=== PATIENT | male | born 1960 | race Caucasian/White ===

== ENCOUNTER 2024-02-29 04:30 | Emergency (ER) | payer OTHER ==
[~2024-02-29] VITALS: Ht 177.8 cm; Wt 77.3 kg
[2024-02-29] MEDS: SODIUM CHLORIDE 0.9% 1,000 ML IV ONE (07:58)
[2024-02-29] MEDS: levETIRAcetam 1000 mg/100ml 100 ML IV ONE (07:58)
[2024-02-29] MEDS: LORazepam 2MG/ML-1ML VIAL IV ONE (07:58)
[2024-02-29] MEDS: LORazepam 2MG/ML-1ML VIAL IM ONE (07:59)
[2024-02-29 08:44] LABS: Urine Bacteria None Seen /hpf (None Seen)
[2024-02-29 08:57] LABS: Urine Blood 1+ /uL (Negative); Urine Clarity Clear (Clear); Urine Color Yellow (Yellow); Urine Mucus FEW (None Seen); Urine Protein, UAD TRACE (Negative); Urine Specific Gravity 1.025 (1.001-1.035); Urine Urobilinogen Normal (Negative); Urine WBC 3 /hpf (0 - 3); Urine pH 5.5 (5.0-9.0)
[2024-02-29 09:10] LABS: Amphetamine Screen, Urine Neg (NEGATIVE); Benzodiazephine Screen, Urine Neg (NEGATIVE)
[2024-02-29 09:11] LABS: Barbiturate Scree,Urine Neg (NEGATIVE); Cannabinoid Screen, Urine Neg (NEGATIVE); Cocaine Screen, Urine Neg (NEGATIVE); Opiate Scree,Urine Neg (NEGATIVE); Phencyclidine Screen, Urine Neg (NEGATIVE)
[2024-02-29 10:00] VITALS: PULSE 84; RESP 16; O2SAT 98
[2024-02-29] MEDS: risperiDONE 1 MG TAB PO ONE (15:47)
[2024-02-29] MEDS: levETIRAcetam 500 MG TAB PO ONE (15:48)
[2024-02-29 17:30] VITALS: TEMP 98.2
[2024-02-29 20:49] VITALS: BP 103/63; PULSE 98; RESP 17; O2SAT 92
== END 2024-02-29 20:59 | disposition home or self-care (01) ==
LOC: EDBD 04:30 → ER 04:30
DX: G40.909 Epilepsy, unspecified, not intractable, without status epilepticus (principal); F20.9 Schizophrenia, unspecified; Z79.899 Other long term (current) drug therapy
CPT/HCPCS: 71045; 80307; 81001; 87086; 96372; 99285; J2060

== ENCOUNTER 2024-04-02 22:55 | Inpatient (IN) | payer OTHER ==
[~2024-04-02] VITALS: Ht 177.8 cm; Wt 61.5 kg
[2024-04-03 00:04] LABS: Basophils # (auto) 0 10 ^3/uL (0-0.2); Basophils % (auto) 0.1 % (0.0-2.0); Eosinophils # (auto) 0 10 ^3/uL (0-0.8); Hematocrit 43.4 % (41.0-53.0); Hemoglobin 14.6 g/dL (13.5-17.5)
[2024-04-03 00:05] LABS: Lymphocytes # (auto) 0.9 10 ^3/uL (0.4-5.4); Lymphocytes % (auto) 8.4 % (10.0-50.0); Mean Corpuscular Hemoglobin 35.1 pg (28.0-32.0); Mean Corpuscular Hgb Conc. 33.7 g/dL (32.0-36.0); Mean Corpuscular Volume 104.2 fL (80.0-100.0); Monocytes % (auto) 8.5 % (0.0-12.0); Neutrophils # (auto) 9.4 10 ^3/uL (1.6-8.6); Platelet Count (auto) 172 10^3/uL (140-450); Red Blood Cells 4.17 10^6/uL (4.5-5.90); Red Cell Distribution Width 13.8 % (11.8-14.3); White Blood Cell 11.3 10^3/uL (4.4-10.8)
[2024-04-03 00:19] LABS: Alanine Aminotransferase 27 U/L (7-40); Albumin 4.6 g/dL (3.2-4.8); Alkaline Phosphatase 119 U/L (46-116); Anion Gap 15 (5-15); Aspartate Aminotransferase 59 U/L (13-40); BUN/Creatinine Ratio 10.4 (10.0-20.0); Bilirubin, Total 1.4 mg/dL (0.2-1.0); Blood Urea Nitrogen 25 mg/dL (9-23); Carbon Dioxide 18 mmol/L (20-31); Chloride 106 mmol/L (98-107); Glucose 110 mg/dL (74-106); Potassium 3.9 mmol/L (3.5-5.1); Sodium 139 mmol/L (136-145)
[2024-04-03 00:21] LABS: Lactic Acid w/Reflex 5.7 mmol/L (0.4-2.0)
[2024-04-03] MEDS: SODIUM CHLORIDE 0.9% 1,000 ML IV ONE ×3 (02:15→18:38)
[2024-04-03] MEDS ORDERED: VANCOMYCIN PER PHARMACY 0 MG IV SCH (05:00)
[2024-04-03] MEDS: THIAMINE 100mg/ml INJ (200mg/2ml VIAL) IV ONE (05:34)
[2024-04-03 06:03] LABS: COVID19 ANTIGEN SOFIA FIA NEGATIVE (NEGATIVE)
[2024-04-03] MEDS: VANCOMYCIN 1GM/200ML PREMIX 200 ML IV ONE (06:21)
[2024-04-03 06:25] LABS: Chloride 107 mmol/L (98-107); Potassium 3.5 mmol/L (3.5-5.1); Sodium 137 mmol/L (136-145)
[2024-04-03 06:26] LABS: Anion Gap 10 (5-15); Carbon Dioxide 20 mmol/L (20-31)
[2024-04-03 06:27] LABS: Calcium 9.1 mg/dL (8.7-10.4)
[2024-04-03 06:31] LABS: Glucose 80 mg/dL (74-106)
[2024-04-03 06:32] LABS: BUN/Creatinine Ratio 12.4 (10.0-20.0); Blood Urea Nitrogen 19 mg/dL (9-23)
[2024-04-03 06:54] LABS: Magnesium 1.8 mg/dL (1.6-2.6)
[2024-04-03 06:56] LABS: Base Excess -1.9 mmol/L (-2.0-3.0)
[2024-04-03 07:33] LABS: Urine Bacteria None Seen /hpf (None Seen)
[2024-04-03 07:35] LABS: Basophils # (auto) 0 10 ^3/uL (0-0.2); Basophils % (auto) 0.3 % (0.0-2.0); Eosinophils # (auto) 0 10 ^3/uL (0-0.8); Eosinophils % (auto) 0.4 % (0.0-7.0); Hematocrit 39.6 % (41.0-53.0); Hemoglobin 13.5 g/dL (13.5-17.5); Lymphocytes # (auto) 1.6 10 ^3/uL (0.4-5.4); Lymphocytes % (auto) 19.8 % (10.0-50.0); Mean Corpuscular Hemoglobin 35.2 pg (28.0-32.0); Mean Corpuscular Hgb Conc. 34.2 g/dL (32.0-36.0); Mean Corpuscular Volume 103.1 fL (80.0-100.0); Monocytes % (auto) 11.8 % (0.0-12.0); Neutrophils # (auto) 5.5 10 ^3/uL (1.6-8.6); Neutrophils % (auto) 67.7 % (37.0-80.0); Nucleated Red Blood Cells % 0.2 %; Platelet Count (auto) 163 10^3/uL (140-450); Red Blood Cells 3.84 10^6/uL (4.5-5.90); Red Cell Distribution Width 13.2 % (11.8-14.3); White Blood Cell 8.2 10^3/uL (4.4-10.8)
[2024-04-03 07:40] VITALS: PULSE 63; RESP 14; O2SAT 98
[2024-04-03 07:42] LABS: Blood Alcohol < 3.0 mg/dL (<10)
[2024-04-03 07:44] LABS: Bilirubin, Direct 0.5 mg/dL (<0.3); INR 1.04 (0.9-1.15); Partial Thromboplastin Time 26.2 SEC (24.5-34.5)
[2024-04-03 08:00] LABS: Urine Blood 3+ /uL (Negative); Urine Clarity Turbid (Clear); Urine Color Yellow (Yellow); Urine Hyaline Cast MANY /lpf (0 - 2); Urine Mucus FEW (None Seen); Urine Protein, UAD 1+ (Negative); Urine Specific Gravity 1.021 (1.001-1.035); Urine Urobilinogen Normal (Negative); Urine WBC 4 /hpf (0 - 3)
[2024-04-03 08:11] LABS: Amphetamine Screen, Urine Neg (NEGATIVE)
[2024-04-03 08:12] LABS: Benzodiazephine Screen, Urine Neg (NEGATIVE)
[2024-04-03 08:13] LABS: Barbiturate Scree,Urine Neg (NEGATIVE); Cannabinoid Screen, Urine Neg (NEGATIVE); Cocaine Screen, Urine Neg (NEGATIVE); Opiate Scree,Urine Neg (NEGATIVE); Phencyclidine Screen, Urine Neg (NEGATIVE)
[2024-04-03 08:18] LABS: Creatinine, Urine 242.31 mg/dL (30.0-125.0)
[2024-04-03] MEDS: POTASSIUM EFFERVESENT TAB 25 MEQ PO SCH (08:23)
[2024-04-03] MEDS: ERGOCALCIFEROL 50,000 UNIT(1.25MG) CAP PO SCH (08:24)
[2024-04-03] MEDS: MAGNESIUM OXIDE 400 MG TAB PO ONE (08:24)
[2024-04-03] MEDS: CYANOCOBALAMIN (B-12) 1000 MCG/1 ML VIAL IM ONE (08:24)
[2024-04-03 08:36] LABS: Erythrocyte Sedimentation Rate 9 mm/hr (0-20)
[2024-04-03] MEDS: MEROPENEM 1GM IVPB 50 ML IV SCH (09:32)
[2024-04-03 12:02] VITALS: BP 112/58; PULSE 88; RESP 20; TEMP 98.8; O2SAT 96
[2024-04-03 12:30] VITALS: BP 102/67; PULSE 58; RESP 20; TEMP 97.3; O2SAT 99
[2024-04-03 17:00] VITALS: BP 93/48; PULSE 46; RESP 18; TEMP 97.8; O2SAT 100
[2024-04-03] MEDS: SODIUM CHLORIDE 0.9% 500 ML IV ONE (18:34)
[2024-04-03] MEDS ORDERED: levETIRAcetam 500 mg/100ml 100 ML IV SCH (18:37)
[2024-04-03] MEDS: FOLIC ACID 1 MG in D5W 5% 50 ML INJ ONE (18:38)
[2024-04-03 20:00] VITALS: PULSE 71; PULSE 72; RESP 16; O2SAT 96
[2024-04-03] MEDS: SODIUM CHLORIDE 0.9% 1,000 ML IV SCH (20:03)
[2024-04-03] MEDS: levETIRAcetam 500 mg/100ml 100 ML IV SCH (20:41)
[2024-04-03 21:00] VITALS: BP 100/57; PULSE 73; RESP 17; TEMP 97.7; O2SAT 98
[2024-04-04] VITALS (8 sets, daily range): BP systolic 82–106; BP diastolic 45–59; PULSE 53–66; RESP 16–18; TEMP 97.5–98.2; O2SAT 95–100
[2024-04-04] MEDS ORDERED: VANCOMYCIN 1GM/250ML 250 ML IV SCH (05:00)
[2024-04-04] MEDS: cefTRIAXone 1GM/50ML D5W 50 ML IV SCH (07:46)
[2024-04-04] MEDS: SODIUM CHLORIDE 0.9% 1,000 ML IV ONE (10:37)
[2024-04-04 10:41] LABS: Basophils # (auto) 0 10 ^3/uL (0-0.2); Hemoglobin 11.7 g/dL (13.5-17.5); Lymphocytes # (auto) 1.2 10 ^3/uL (0.4-5.4); Monocytes # (auto) 0.6 10 ^3/uL (0-1.3); White Blood Cell 5.8 10^3/uL (4.4-10.8)
[2024-04-04 10:43] LABS: Basophils % (auto) 0.4 % (0.0-2.0); Eosinophils # (auto) 0.1 10 ^3/uL (0-0.8); Eosinophils % (auto) 2.5 % (0.0-7.0); Hematocrit 33.9 % (41.0-53.0); Lymphocytes % (auto) 21.5 % (10.0-50.0); Mean Corpuscular Hemoglobin 35.4 pg (28.0-32.0); Mean Corpuscular Hgb Conc. 34.5 g/dL (32.0-36.0); Mean Corpuscular Volume 102.8 fL (80.0-100.0); Monocytes % (auto) 10.7 % (0.0-12.0); Neutrophils # (auto) 3.8 10 ^3/uL (1.6-8.6); Neutrophils % (auto) 64.9 % (37.0-80.0); Platelet Count (auto) 143 10^3/uL (140-450); Red Blood Cells 3.29 10^6/uL (4.5-5.90); Red Cell Distribution Width 13.2 % (11.8-14.3)
[2024-04-04 11:00] LABS: Alanine Aminotransferase 30 U/L (7-40); Alkaline Phosphatase 88 U/L (46-116); Anion Gap 4 (5-15); Aspartate Aminotransferase 82 U/L (13-40); BUN/Creatinine Ratio 15.9 (10.0-20.0); Blood Urea Nitrogen 14 mg/dL (9-23); Calcium 8.6 mg/dL (8.7-10.4); Carbon Dioxide 25 mmol/L (20-31); Chloride 111 mmol/L (98-107); Glucose 74 mg/dL (74-106); Potassium 3.6 mmol/L (3.5-5.1); Sodium 140 mmol/L (136-145)
[2024-04-04 11:01] LABS: Albumin 3.3 g/dL (3.2-4.8); Bilirubin, Total 0.5 mg/dL (0.2-1.0); Total Protein 5.1 g/dL (5.7-8.2)
[2024-04-04 11:12] LABS: Creatine Kinase IFCC 1476 U/L (46-171)
[2024-04-04] MEDS: SODIUM CHLORIDE 0.9% 1,000 ML IV SCH (18:37)
[2024-04-05] VITALS (8 sets, daily range): BP systolic 92–116; BP diastolic 49–68; PULSE 54–91; RESP 15–21; TEMP 97.4–98.5; O2SAT 94–99
[2024-04-05] MEDS: ENOXAPARIN SOD 40 MG/0.4 ML SYRINGE SC SCH (09:49)
[2024-04-05 10:55] LABS: Basophils # (auto) 0 10 ^3/uL (0-0.2); Eosinophils # (auto) 0.2 10 ^3/uL (0-0.8); Hemoglobin 12.9 g/dL (13.5-17.5); Lymphocytes # (auto) 1.4 10 ^3/uL (0.4-5.4); Mean Corpuscular Hgb Conc. 34.4 g/dL (32.0-36.0); Nucleated Red Blood Cells % 0.1 %; Red Blood Cells 3.65 10^6/uL (4.5-5.90)
[2024-04-05 10:58] LABS: Basophils % (auto) 0.3 % (0.0-2.0); Eosinophils % (auto) 2.5 % (0.0-7.0); Hematocrit 37.5 % (41.0-53.0); Mean Corpuscular Hemoglobin 35.3 pg (28.0-32.0); Mean Corpuscular Volume 102.7 fL (80.0-100.0); Monocytes # (auto) 0.6 10 ^3/uL (0-1.3); Monocytes % (auto) 8.5 % (0.0-12.0); Neutrophils # (auto) 5.4 10 ^3/uL (1.6-8.6); Neutrophils % (auto) 70.7 % (37.0-80.0); Platelet Count (auto) 155 10^3/uL (140-450); White Blood Cell 7.6 10^3/uL (4.4-10.8)
[2024-04-05 11:17] LABS: Anion Gap 5 (5-15); Carbon Dioxide 26 mmol/L (20-31); Chloride 109 mmol/L (98-107); Potassium 4.7 mmol/L (3.5-5.1); Sodium 140 mmol/L (136-145)
[2024-04-05 11:18] LABS: Calcium 9.1 mg/dL (8.7-10.4)
[2024-04-05 11:23] LABS: BUN/Creatinine Ratio 10.2 (10.0-20.0); Blood Urea Nitrogen 9 mg/dL (9-23); Glucose 81 mg/dL (74-106)
[2024-04-05 11:24] LABS: Creatine Kinase IFCC 921 U/L (46-171)
[2024-04-05] MEDS: THIAMINE 100mg/ml INJ (200mg/2ml VIAL) IV SCH (12:44)
[2024-04-05] MEDS: FOLIC ACID 1 MG in D5W 5% 50 ML INJ SCH (16:54)
[2024-04-05] MEDS: QUEtiapine FUMARATE 25 MG TAB PO SCH (18:21)
[2024-04-05] MEDS: risperiDONE 1 MG TAB PO ONE (18:21)
[2024-04-06] VITALS (8 sets, daily range): BP systolic 95–130; BP diastolic 48–66; PULSE 52–86; RESP 13–18; TEMP 97.5–98.2; O2SAT 95–100
[2024-04-06] MEDS: risperiDONE 1 MG TAB PO SCH (09:43)
[2024-04-06 16:12] LABS: Basophils # (auto) 0 10 ^3/uL (0-0.2); Basophils % (auto) 0.5 % (0.0-2.0); Eosinophils # (auto) 0.2 10 ^3/uL (0-0.8); Eosinophils % (auto) 5.2 % (0.0-7.0); Hematocrit 36.3 % (41.0-53.0); Hemoglobin 12.2 g/dL (13.5-17.5); Lymphocytes # (auto) 1.7 10 ^3/uL (0.4-5.4); Lymphocytes % (auto) 37.9 % (10.0-50.0); Mean Corpuscular Hemoglobin 34.8 pg (28.0-32.0); Mean Corpuscular Hgb Conc. 33.5 g/dL (32.0-36.0); Mean Corpuscular Volume 103.9 fL (80.0-100.0); Monocytes # (auto) 0.5 10 ^3/uL (0-1.3); Monocytes % (auto) 10.9 % (0.0-12.0); Neutrophils # (auto) 2.1 10 ^3/uL (1.6-8.6); Neutrophils % (auto) 45.5 % (37.0-80.0); Nucleated Red Blood Cells % 0.1 %; Platelet Count (auto) 152 10^3/uL (140-450); Red Cell Distribution Width 13.7 % (11.8-14.3); White Blood Cell 4.6 10^3/uL (4.4-10.8)
[2024-04-06 16:22] LABS: Chloride 112 mmol/L (98-107); Potassium 4.3 mmol/L (3.5-5.1); Sodium 141 mmol/L (136-145)
[2024-04-06 16:23] LABS: Anion Gap 5 (5-15); Carbon Dioxide 24 mmol/L (20-31)
[2024-04-06 16:24] LABS: Calcium 9.2 mg/dL (8.7-10.4)
[2024-04-06 16:28] LABS: BUN/Creatinine Ratio 8.8 (10.0-20.0); Blood Urea Nitrogen 7 mg/dL (9-23); Glucose 101 mg/dL (74-106)
[2024-04-07] VITALS (7 sets, daily range): BP systolic 89–105; BP diastolic 47–59; PULSE 56–75; RESP 18; TEMP 97.4–98.1; O2SAT 94–98
[2024-04-07] MEDS: SODIUM CHLORIDE 0.9% 500 ML IV ONE (08:45)
== END 2024-04-07 19:56 | disposition home or self-care (01) | DRG 422 ==
LOC: EDBD 22:55 → ER 22:55 → TELE 04-03 04:55 → TELE-WESTW 04-03 11:20 → TELE-CENTR 04-03 11:45
PROVIDERS: ADMIT Nurse Practitioner Family; ATTEND Student in an Organized Health Care Education/Training Program
DX: E86.0 Dehydration (principal); N17.0 Acute kidney failure with tubular necrosis; G92.8 Other toxic encephalopathy; E87.20 Acidosis, unspecified; D53.1 Other megaloblastic anemias, not elsewhere classified; T83.098A Other mechanical complication of other urinary catheter, initial encounter; Y83.8 Other surgical procedures as the cause of abnormal reaction of the patient, or of later complication, without mention of misadventure at the time of the procedure; F20.9 Schizophrenia, unspecified; G40.909 Epilepsy, unspecified, not intractable, without status epilepticus; F17.210 Nicotine dependence, cigarettes, uncomplicated; D75.89 Other specified diseases of blood and blood-forming organs; Z20.822 Contact with and (suspected) exposure to COVID-19; R74.01 Elevation of levels of liver transaminase levels; R31.0 Gross hematuria; G62.9 Polyneuropathy, unspecified
CPT/HCPCS: 36415; 36600; 70450; 71045; 76700; 80048; 80053; 80307; 80320; 81001; 82140; 82248; 82306; 82550; 82570; 82607; 82746; 82805; 82962; 83036; 83605; 83735; 83880; 84100; 84300; 84443; 84484; 85025; 85610; 85652; 85730; 87040; 87081; 87086; 87426; 93005; 93306; 93886; 97163; G0378; J2185; J7060

== ENCOUNTER 2024-07-14 16:49 | Inpatient (IN) | payer MEDICAID, OTHER ==
[~2024-07-14] VITALS: Ht 177.8 cm; Wt 59.3 kg
[2024-07-14] MEDS: HYDROcodone-ACET 5/325MG TAB PO ONE (17:30)
[2024-07-14] MEDS: KETOROLAC TROMETH 60MG/2ML VIAL IM ONE (17:30)
--- NOTE | 2024-07-14 18:08 | DVH ---
EXAM: XY L FOREARM XRAY CLINICAL HISTORY: Trauma COMPARISON: None TECHNIQUE: XY L FOREARM XRAY Findings/Impression: 2 views of the left forearm. Mildly displaced comminuted fractures of the distal radius and ulna. There is no evidence of dislocation, blastic, or lytic lesions. No radiopaque foreign bodies.
--- NOTE | 2024-07-14 18:10 | DVH ---
EXAM: XY L WRIST 3+ VIEW XRAY CLINICAL HISTORY: Trauma COMPARISON: None TECHNIQUE: XY L WRIST 3+ VIEW XRAY Findings/Impression: 3 views of robert left wrist. Mildly displaced, comminuted fractures of the distal radius and ulna. Mild to moderate soft tissue ed mary. There is no evidence of dislocation, blastic, or lytic lesions. No radiopaque foreign bodies.
--- NOTE | 2024-07-14 20:58 | ED.PDOC ---
Musculoskeletal HPI Comments This patient is a 63-year-old male who lives in an assisted living facility due to altered mental status as concerns that may be related to a traumatic brain injury arrives to the ED today via EMS for complaints of left arm and wrist pain. Patient apparently wandered off from his facility and was found by facility members. They stated once he was found they noticed his left wrist and forearm were deformed and painful. They are unaware of what occurred. Patient can not specify what occurred as well. No blood loss. No signs of head trauma. Vital signs were stable on arrival. Chief Complaint: Upper Extremity Time Seen by MD: 17:14 Reviewed Notes: Nurses Notes, Head Animal Trainer Notes Information Source: Patient, Emergency Med Personnel Mode of Arrival: EMS Location: Left Extremity Location: Arm, Wrist Timing: Hours Prehospital treatment: None Severity: Moderate Able to Move Extremity: No Bear Weight: Fully Pain: Moderate Hand Dominance: Right Mechanism: Compression Circumstances: Unknown Onset of Symptoms: After Trauma Symptoms: Swelling, Pain DVT Risk Factors: NONE Past Medical History PAST MEDICAL HISTORY: Denies Past Medical History (Other): Patient has some level of altered mental status history that may be related to a traumatic brain injury. Surgical History: Unobtainable Family History Family History: Reviewed,noncontributory to illness, No family hx of Cancer, No family hx of DM, No family hx of Heart lesa, No family hx of HTN, No family hx ofKidney lesa, No family hx of Liver lesa, No family hx of Lung lesa, No family hx of Stroke Social History Smoker: Non-Smoker Alcohol: Denies ETOH Use Drugs: Denies Drug Use Lives In: Home Constitutional: denies: chills, diaphoresis, fatigue, fever, malaise, sweats, weakness, others EENTM: denies: blurred vision, double vision, ear bleeding, ear discharge, ear drainage, ear pain, ear ringing, eye pain, eye redness, hearing loss, mouth pain, mouth swelling, nasal discharge, nose bleeding, nose congestion, nose pain, photophobia, tearing, throat pain, throat swelling, voice changes, others Respiratory: denies: cough, hemoptysis, orthopnea, SOB at rest, shortness of breath, SOB with excertion, stridor, wheezing, others Cardiovascular: denies: chest pain, dizzy spells, diaphoresis, Dyspnea on exertion, edema, irregular heart beat, left arm pain, lightheadedness, palpitations, PND, syncope, others Gastrointestinal: denies: abdomen distended, abdominal pain, blood streaked bowels, constipated, diarrhea, dysphagia, difficulty swallowing, hematemesis, melena, nausea, poor appetite, poor fluid intake, rectal bleeding, rectal pain, vomiting, others Genitourinary: denies: burning, dysuria, flank pain, frequency, hematuria, incontinence, penile discharge, penile sore, pain, testicle pain, testicle swelling, urgency, others Neurological: denies: dizziness, fainting, headache, left sided numbness, left sided weakness, numbness, paresthesia, pre-existing deficit, right sided numbness, right sided weakness, seizure, speech problems, tingling, tremors, weakness, others Musculoskeletal: reports: others (Left forearm and left wrist pain); denies: back pain, gout, joint pain, joint swelling, muscle pain, muscle stiffness, neck pain Integumetry: denies: bruises, change in color, change in hair/nails, dryness, laceration, lesions, lumps, rash, wounds, others Allergic/Immunocompromised: denies: Difficulty Healing, Frequent Infections, Hives, Itching, others Hematologic/Lymphatic: denies: anemia, blood clots, easy bleeding, easy bruising, swollen glands, others Endocrine: denies: excessive hunger, excessive sweating, excessive thirst, excessive urination, flushing, intolerance to cold, intolerance to heat, unexplained weight gain, unexplained weight loss, others Psychiatric: denies: anxiety, bipolar disorder, depression, hopeless, panic disorder, schizophrenia, sleepless, suicidal, others Unable to Obtain due to: Altered Mental Status, Dementia Physical Exam General Appearance: Moderate Distress (Patient appears to be in moderate distress due to arm and wrist pain concerns), Normal HEENT: Normal ENT Inspection, Pharynx Normal, TMs Normal Neck: Full Range of Motion, Non-Tender, Normal, Normal Inspection Respiratory: Chest Non-Tender, Lungs Clear, No Accessory Muscle Use, No Respiratory Distress, Normal Breath Sounds Cardiovascular: No Edema, No JVD, No Murmur, No Gallop, Normal Peripheral Pulses, Regular Rate/Rhythm Breast Exam: Deferred Gastrointestinal: No Pulsatile Mass, Normal Bowel Sounds, Soft Genitalia: Deferred Pelvic: Deferred Rectal: Deferred Extremities: Other (Diffuse left distal forearm tenderness to palpation extending into the wrist. Localized edema without ecchymosis. Significant reduced range of motion. No definitive boutonniere deformity.) Neurologic: Alert Cerebellar Function: NOT DONE Reflexes: NOT DONE Skin: Dry, Normal Color, Warm Lymphatic: No Adenopathy Was a procedure done? Was a procedure done?: No Differential Diagnosis EXT Differential Diagnosis: Other (Wrist fracture, wrist sprain, facial fracture, ulnar fracture, forearm contusion) X-Ray, Labs, Meds, VS Vital Signs Date Time Temp Pulse Resp B/P (MAP) Pulse Ox O2 Delivery O2 Flow Rate FiO2 07/14/24 18:19 98.6 107 16 105/68 (80) 96 07/14/24 17:01 100 X-Ray, Labs, Meds, VS Comment All studies performed the ED were evaluated by me personally. Imaging studies confirmed a distal radius and ulnar fracture that is comminuted but nondisplaced. Patient was put in a sugar-tong splint and sling and has been adv ised to follow up with ortho. While at the facility, [facility]'s department called and notified us that the patient is not to come back to his facility as he has been combative. Patient will be admitted for evaluation of his multiple fractures as well as case management social worker consult for long-term placement. Time of 1ST Reevaluation: 20:56 Reevaluation 1ST: Improved Consultation: PCP, Other (Orthopedist) Patient Education/Counseling: Diagnosis, Treatment Family Education/Counseling: Diagnosis, Treatment Departure 1 Departure Time of Disposition: 20:56 Impression: Primary Impression: Fracture of distal end of left radius and ulna Disposition: ADMITTED INPATIENT Condition: Fair Discharged With: Self Critical Care Note Critical Care Time?: No Stability Stability form required: No Heart Score Heart Score: Heart Score Response (Comments) Value History N/A 0 EKG N/A 0 Age N/A 0 Risk Factors N/A 0 Troponin N/A 0 Total 0 MARIA LUZ MAKI PAC Jul 14, 2024 20:58
[2024-07-14] MEDS ORDERED: DOCUSATE SOD 100 MG CAP PO PRN (23:00)
[2024-07-14] MEDS: SODIUM CHLORIDE 0.9% 1,000 ML IV SCH (23:00)
[2024-07-14] MEDS ORDERED: ACETAMINOPHEN 325 MG TAB PO PRN (23:00)
[2024-07-14] MEDS ORDERED: ONDANSETRON HCL 4 MG/2 ML VIAL IV PRN (23:00)
--- NOTE | 2024-07-14 23:09 | DVHHP2 ---
History of Present Illness Reason for Visit: Fracture of distal end of left radius and ulna History of Present Illness The patient is a 63-year-old male with past medical history of traumatic brain injury presented to [facility] ED with complaint of left arm and wrist pain. Patient apparently wandered off from his facility and was found by facility members, noticed his left wrist and forearm were deformed and painful. Patient was seen and evaluated in the ED, laboratory data shows WBC 8.2, platelets 216. Left wrist x-ray revealing mildly displaced comminuted fracture of the distal radius and ulna, mild to moderate soft tissue edema. Please see medication orders section in the computer. On my assessment, patient no signs of head trauma, no dizziness, no diaphoresis, no nausea, no vomiting, no fever, no chills. Patient was admitted for further evaluation and medical management. Past Medical History Denies past medical history, Traumatic brain injury. Past Surgical History Denies all surgeries Family History Reviewed, noncontributory to the management of this case. Past Social History The patient lives at home, denies smoking, alcohol or illicit drugs abuse. Review of Systems Constitutional: Yes: Weakness; No: Fever, Chills, Sweats, Malaise, Other Eyes: No: Pain, Vision change, Conjunctivae inflammation, Eyelid inflammation, Other, Redness ENT: No: Ear pain, Ear discharge, Nose pain, Nose discharge, Nose congestion, Mouth pain, Mouth swelling, Throat pain, Throat swelling, Other Respiratory: No: Cough, Dry, Shortness of breath, SOB with excertion, Wheezing, Hemoptysis, Pleuritic Pain, Sputum, Wheezing, Other Cardiovascular: No: Chest Pain, Palpitations, Orthopnea, Paroxysmal Noc. Dyspnea, Edema, Lt Headedness, Other Gastrointestinal: No: Nausea, Vomiting, Abdominal Pain, Diarrhea, Constipation, Melena, Hematochezia, Other Genitourinary: No Dysuria, No Frequency, No Incontinence, No Hematuria, No Retention, No Other Musculoskeletal: other (Left forearm and left wrist pain.); No: neck pain, shoulder pain, arm pain, back pain, hand pain, leg pain, foot pain Skin: No: Rash, Lesions, Jaundice, Bruising, Other Neurological: No: Weakness, Numbness, Incoordination, Change in speech, Confusion, Seizures, Other Medications Current Medications Medications Dose Ordered Sig/Cece Route Start Time Stop Time Status Last Admin Dose Admin Sodium Chloride 1,000 ml @ 60 mls/hr [id number] IV 07/14/24 23:00 UNV Acetaminophen/ Hydrocodone Bitart 1 tab Q4HP PRN PO 07/14/24 23:00 UNV Ondansetron HCl 4 mg Q4HP PRN IV 07/14/24 23:00 UNV Docusate Sodium 100 mg BIDPRN PRN PO 07/14/24 23:00 UNV Enoxaparin Sodium 40 mg DAILY SC 07/15/24 10:00 UNV Acetaminophen 650 mg Q6HP PRN PO 07/14/24 23:00 UNV Morphine Sulfate 2 mg Q4HPRN PRN IV 07/14/24 23:00 UNV Exam Vital Signs Vital Signs Date Time Temp Pulse Resp B/P (MAP) Pulse Ox O2 Delivery O2 Flow Rate FiO2 07/14/24 18:19 98.6 107 16 105/68 (80) 96 General Appearance: Alert, Oriented X3, Cooperative, No acute distress HEENT: Atraumatic, PERRLA, EOMI, Mucous membr. moist/pink Respiratory: Clear to auscultation, Normal air movement Cardiovascular: Regular rate, Normal S1, Normal S2, No murmurs Abdominal: Normal bowel sounds, Soft, No tenderness, No hepatospenomegaly, No masses Extremities: No clubbing, No cyanosis, No edema, Normal pulses, No tenderness/swelling Skin: No rashes, No breakdown, No significant lesion Neuro: Normal speech, Normal tone, Sensation intact, Cranial nerves 3-12 NL, Reflexes 2+, Other (Generalized weakness) Psych/Mental Status: Mental status NL, Mood NL Labs/Xrays PATIENT: LELAND TRAN ACCT: [id number] UNIT: [id number] : 1960 LOC: ER ROOM / BED: / AGE / SEX: 63 / M ADM STATUS: REG ER SERVICE [id number] ORDERING PHYSICIAN: MARIA LUZ MAKI PAC PROCEDURE(s): LFOR - L FOREARM XRAY REASON: Trauma ORDER NUMBER(s): [id number], ACCESSION NUMBER(s): [id number] EXAM: XY L FOREARM XRAY CLINICAL HISTORY: Trauma COMPARISON: None TECHNIQUE: XY L FOREARM XRAY Findings/Impression: 2 views of the left forearm. Mildly displaced comminuted fractures of the distal radius and ulna. There is no evidence of dislocation, blastic, or lytic lesions. No radiopaque foreign bodies. ORDERING PHYSICIAN: MARIA LUZ MAKI PAC PROCEDURE(s): LWRI - L WRIST 3+ VIEW XRAY REASON: Trauma ORDER NUMBER(s): [id number], ACCESSION NUMBER(s): [id number] EXAM: XY L WRIST 3+ VIEW XRAY CLINICAL HISTORY: Trauma COMPARISON: None TECHNIQUE: XY L WRIST 3+ VIEW XRAY Findings/Impression: 3 views of robert left wrist. Mildly displaced, comminuted fractures of the distal radius and ulna. Mild to moderate soft tissue edema. There is no evidence of dislocation, blastic, or lytic lesions. No radiopaque foreign bodies. Assessment/Plan Assessment/Plan Fracture of distal end of left radius and ulna Generalized weakness Plan 1. Admit to Med-Surg unit 2. Breathing treatment 3. Pain control management 4. Management of fluids and electrolytes 5. Consultation for orthopedic 6. Diagnostic tests left wrist x-ray 7. DVT prophylaxis-on Lovenox 8. Repeat labs CBC, CMP in a.m. 9. Continue with current medical management 10. Treatment plan discussed with patient and RN. Patient verbalized understanding. Plan discussed with: Patient, Other (RN) My Orders Orders - LARA SOLIMAN DNP Procedure Category Date Status Time Complete Blood Count LAB 07/14/24 Logged 22:59 Comprehensive LAB 07/14/24 Logged Metabolic Panel 22:59 Allergies RAFA 07/14/24 In Process 22:59 Code Status CODE 07/14/24 Transmitted 22:59 Sodium Chloride 0.9% PHA 07/14/24 Logged 23:00 Oxygen Per Hour RT 07/14/24 Transmitted 22:59 Hydrocodone-Acet PHA 07/14/24 Logged 5/325mg Tab (Elma 23:00 Ondansetron Hcl PHA 07/14/24 Logged (Zofran) 23:00 Docusate Sodium PHA 07/14/24 Logged Capsule (Colace 23:00 Enoxaparin Sodium PHA 07/15/24 Logged (Lovenox) 10:00 Complete Blood Count LAB 07/15/24 Verified 04:00 Comprehensive LAB 07/15/24 Verified Metabolic Panel 04:00 Cardiac DIET 07/15/24 Transmitted Diet-2gna,Lofat,Lochol Breakfast Condition: Serious RAFA 07/14/24 In Process 22:59 Acetaminophen Tablet PHA 07/14/24 Logged (Tylenol Tablet) 23:00 Bedrest With Bathroom RAFA 07/14/24 In Process Privileg 22:59 Morphine Sulfate PHA 07/14/24 Logged Injection 23:00 Sequential RAFA 07/14/24 In Process Compression Device * Orthopedic Consult CONS 07/14/24 Transmitted 23:04 Problem List: (1) Fracture of distal end of left radius and ulna (2) Generalized weakness Date of Service: Jul 14, 2024 Billing Provider: LARA SOLIMAN DNP Common Visit Codes: [id number] INP/OBS CARE (HIGH) LARA SOLIMAN DNP Jul 14, 2024 23:09
[2024-07-14] MEDS ORDERED: MORPHINE SULFATE INJ 2 MG/ml SYRG IV PRN (23:15)
[2024-07-14] MEDS ORDERED: NITROGLYCERIN 0.4 MG SL TAB SL PRN (23:15)
[2024-07-14 23:23] LABS: Basophils # (auto) 0 10 ^3/uL (0-0.2); Basophils % (auto) 0.2 % (0.0-2.0); Eosinophils # (auto) 0.1 10 ^3/uL (0-0.8); Hematocrit 39.9 % (41.0-53.0); Hemoglobin 13.5 g/dL (13.5-17.5); Lymphocytes # (auto) 0.8 10 ^3/uL (0.4-5.4); Lymphocytes % (auto) 10.2 % (10.0-50.0); Mean Corpuscular Hemoglobin 33.7 pg (28.0-32.0); Mean Corpuscular Hgb Conc. 33.8 g/dL (32.0-36.0); Mean Corpuscular Volume 99.5 fL (80.0-100.0); Monocytes # (auto) 0.7 10 ^3/uL (0-1.3); Monocytes % (auto) 8.6 % (0.0-12.0); Neutrophils # (auto) 6.6 10 ^3/uL (1.6-8.6); Nucleated Red Blood Cells % 0.1 %; Platelet Count (auto) 216 10^3/uL (140-450); Red Blood Cells 4.01 10^6/uL (4.5-5.90); Red Cell Distribution Width 13.6 % (11.8-14.3); White Blood Cell 8.2 10^3/uL (4.4-10.8)
[2024-07-14 23:32] VITALS: PULSE 106; RESP 17; O2SAT 97
[2024-07-14 23:48] LABS: Alanine Aminotransferase 16 U/L (7-40); Albumin 4.1 g/dL (3.2-4.8); Anion Gap 7 (5-15); Aspartate Aminotransferase 19 U/L (13-40); Bilirubin, Total 0.3 mg/dL (0.2-1.0); Blood Urea Nitrogen 18 mg/dL (9-23); Calcium 10.1 mg/dL (8.7-10.4); Carbon Dioxide 24 mmol/L (20-31); Sodium 140 mmol/L (136-145); Total Protein 6.6 g/dL (5.7-8.2)
[2024-07-14 23:57] LABS: Alkaline Phosphatase 148 U/L (46-116); Chloride 109 mmol/L (98-107); Glucose 119 mg/dL (74-106); Potassium 3.4 mmol/L (3.5-5.1)
[2024-07-15] MEDS: MORPHINE SULFATE INJ 2 MG/ml SYRG IV PRN (03:26)
[2024-07-15 06:00] VITALS: PULSE 87; RESP 17; O2SAT 97
[2024-07-15 09:37] VITALS: O2SAT 97
[2024-07-15] MEDS: ENOXAPARIN SOD 40 MG/0.4 ML SYRINGE SC SCH (10:01)
[2024-07-15 10:14] LABS: Basophils # (auto) 0 10 ^3/uL (0-0.2); Basophils % (auto) 0.4 % (0.0-2.0); Eosinophils # (auto) 0.1 10 ^3/uL (0-0.8); Eosinophils % (auto) 1.2 % (0.0-7.0); Hematocrit 36.2 % (41.0-53.0); Hemoglobin 12.5 g/dL (13.5-17.5); Lymphocytes # (auto) 0.9 10 ^3/uL (0.4-5.4); Lymphocytes % (auto) 10.9 % (10.0-50.0); Mean Corpuscular Hemoglobin 33.6 pg (28.0-32.0); Mean Corpuscular Hgb Conc. 34.5 g/dL (32.0-36.0); Mean Corpuscular Volume 97.4 fL (80.0-100.0); Monocytes # (auto) 0.9 10 ^3/uL (0-1.3); Monocytes % (auto) 10.7 % (0.0-12.0); Neutrophils # (auto) 6.6 10 ^3/uL (1.6-8.6); Neutrophils % (auto) 76.8 % (37.0-80.0); Platelet Count (auto) 254 10^3/uL (140-450); Red Blood Cells 3.72 10^6/uL (4.5-5.90); Red Cell Distribution Width 13.6 % (11.8-14.3); White Blood Cell 8.6 10^3/uL (4.4-10.8)
[2024-07-15 10:25] LABS: Alanine Aminotransferase 15 U/L (7-40); Albumin 4.1 g/dL (3.2-4.8); Alkaline Phosphatase 146 U/L (46-116); Anion Gap 10 (5-15); Aspartate Aminotransferase 17 U/L (13-40); BUN/Creatinine Ratio 18.6 (10.0-20.0); Blood Urea Nitrogen 16 mg/dL (9-23); Calcium 9.9 mg/dL (8.7-10.4); Carbon Dioxide 22 mmol/L (20-31); Chloride 109 mmol/L (98-107); Glucose 98 mg/dL (74-106); Potassium 3.2 mmol/L (3.5-5.1); Sodium 141 mmol/L (136-145)
[2024-07-15 10:26] LABS: Bilirubin, Total 0.4 mg/dL (0.2-1.0); Total Protein 6.3 g/dL (5.7-8.2)
[2024-07-15 10:35] LABS: INR 0.97 (0.9-1.15); Partial Thromboplastin Time 26.9 SEC (24.5-34.5); Prothrombin Time 10.3 sec (9.3-11.8)
[2024-07-15] MEDS: POTASSIUM EFFERVESENT TAB 25 MEQ PO ONE (10:39)
--- NOTE | 2024-07-15 11:12 | DVHPNRES ---
Progress Note Date Seen: Jul 15, 2024 Resident Creating Document: RAIMUNDO CURRY RESIDENT Medical Necessity Reason Pt with a Central, PICC or Fol: No Subjective Review of Systems This is a 63-year-old male with past medical history of traumatic brain injury presented to the with a complaint of left arm pain left arm and wrist pain. Patient apparently wandered off from his facility and was found by facility members, noticed his left wrist and forearm were deformed and painful that prompted this visit. Xray of the left wrist revealed mildly displaced comminuted fracture of the distal radius and ulna with [id number] soft tissue edema.In the ED they put sugar-tong splint in the forearm and wrist for immobilization and sling. Constitutional: No: Fever, Chills, Sweats, Weakness, Malaise, Other Eyes: No: Pain, Vision change, Conjunctivae inflammation, Eyelid inflammation, Other, Redness ENT: No: Ear pain, Ear discharge, Nose pain, Nose discharge, Nose congestion, Mouth pain, Mouth swelling, Throat pain, Throat swelling, Other Respiratory: Shortness of breath, improving No: Cough, Dry,Wheezing, Hemoptysis, Pleuritic Pain, Sputum, Wheezing, Other Cardiovascular: No: Chest Pain, Palpitations, Orthopnea, Paroxysmal Noc. Dyspnea, Edema, Lt Headedness, Other Gastrointestinal: No: Nausea, Vomiting, Abdominal Pain, Diarrhea, Constipation, Melena, Hematochezia, Other Musculoskeletal: Pain in the lt arm ,No: other, neck pain, shoulder pain, arm pain, back pain, hand pain, leg pain, foot pain Neurological:; No: Weakness, Numbness, Incoordination, Change in speech, Confusion, Seizures Objective vital signs Vital Sign Date Time Temp Pulse Resp B/P (MAP) Pulse Ox O2 Delivery O2 Flow Rate FiO2 07/15/24 10:02 97 16 120/63 07/15/24 09:43 98.0 100 98.0 07/15/24 09:37 Room Air* 0 21 medications Current Medications Medications Dose Ordered Sig/Cece Route Start Time Stop Time Status Last Admin Dose Admin Sodium Chloride 1,000 ml @ 60 mls/hr [id number] IV 07/14/24 23:00 07/14/24 23:00 60 MLS/HR Acetaminophen/ Hydrocodone Bitart 1 tab Q4HP PRN PO 07/14/24 23:00 Ondansetron HCl 4 mg Q4HP PRN IV 07/14/24 23:00 Docusate Sodium 100 mg BIDPRN PRN PO 07/14/24 23:00 Enoxaparin Sodium 40 mg DAILY SC 07/15/24 10:00 07/15/24 10:01 40 MG Acetaminophen 650 mg Q6HP PRN PO 07/14/24 23:00 Morphine Sulfate 2 mg Q4HPRN PRN IV 07/14/24 23:00 07/15/24 10:02 2 MG Nitroglycerin 0.4 mg Q5MINP PRN SL 07/14/24 23:15 Morphine Sulfate 2 mg Q30M PRN IV 07/14/24 23:15 Examination Physical examination: General Appearance: Alert, Oriented X3, Cooperative, No acute distress HEENT: Atraumatic, PERRLA, EOMI, Mucous membrane moist/pink Respiratory: Clear to auscultation, Normal air movement Cardiovascular: Regular rate, Normal S1, Normal S2, No murmurs, no chest wall tenderness Abdominal: Normal bowel sounds, Soft, No tenderness, No hepatospenomegaly, No masses Extremities: Lt arm splint, No clubbing, No cyanosis, No edema, Normal pulses, No tenderness/swelling Skin: Multiple dried bruises in the Rt arm and bilateral legs, No rashes, No breakdown, No significant lesion Neuro: Normal gait, Normal speech, Strength at 5/5 X4 ext, Normal tone, Sensation intact, Cranial nerves 3-12 NL, Reflexes 2+ Psych/Mental Status: Mental status NL, Mood NL laboratory and microbiology Laboratory Tests 07/15/24 09:55 Test 07/15/24 09:55 Range/Units Serum Glucose 98 74-106 mg/dL Labs and/or images reviewed: Labs reviewed by me, Image(s) reviewed by me Problem List/Assessment/Plan Problem List/Assessment/Plan Assessment and Plan: # S/P mehanical fall # Comminuted fracture of distal radius and ulna, s/p arm splint and sling - Xray of the lt wrist revealed mildly displaced, comminuted fractures of the distal radius and ulna. Mild to moderate soft tissue edema.There is no evidence of dislocation, blastic, or lytic lesions. - In the ED patient underwent sugar-tong splint in the forearm and wrist for immobilization and sling. - Orthopedics evaluated the patient and recommended open reduction and internal fixation tomorrow on 07/16/24. - IV morphine 2 mg q.4 p.r.n. - [place] 5/325 mg q.4 p.r.n. # Hypokalemia - Replenished # Homelessness - Patient is homeless and consulted medical social consultant for long-term placement. Diet: Regular diet PUD prohylaxis: Pepcid 20 mg daily DVT prophylaxis: Hold due to the possibility of procedure tomorrow. Goal of care discussed with the patient for more than 20 minutes full code Plan discussed with: Patient, Other My Orders My Orders Orders - RAIMUNDO CURRY RESIDENT Procedure Category Date Status Time Urinalysis LAB 07/15/24 Uncollected 09:15 Drug Screen LAB 07/15/24 Logged 09:15 Chest Xray 1 View XY 07/15/24 Logged 09:15 Date of Service: Jul 15, 2024 Billing Provider: EZEQUIEL HSIEH MD Common Visit Codes: [id number] INP/OBS CARE(HIGH) RAIMUNDO CURRY RESIDENT Jul 15, 2024 11:12 EZEQUIEL HSIEH MD Jul 15, 2024 19:59
--- NOTE | 2024-07-15 11:55 | DVH ---
CHEST RADIOGRAPH Indication: hypoxia Technique: Single frontal view of the chest was obtained COMPARISON: None FINDINGS: No pneumothorax or consolidative infiltrates. There is central interstitial prominence. The heart is not enlarged. There are old fractures of multiple bilateral ribs, right proximal humerus, and left m id clavicle. There are postoperative changes of left humeral ORIF, not fully imaged here. IMPRESSION: 1. Central interstitial prominence may be due to mild CHF and/or reactive airways disease. 2. No other acute intrathoracic process is identified here. 3. Multiple chronic fractures as detailed above.
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
[2024-07-15 20:00] VITALS: O2SAT 97
[2024-07-15 21:08] VITALS: O2SAT 99
[2024-07-15 21:32] VITALS: BP 154/86; PULSE 117; RESP 19; TEMP 97.9; O2SAT 98
[2024-07-15 22:00] VITALS: BP 154/86; PULSE 118; RESP 19; TEMP 97.9; O2SAT 98
[2024-07-16 05:00] VITALS: BP 138/82; PULSE 75; RESP 19; TEMP 98.1; O2SAT 99
[2024-07-16 08:00] VITALS: RESP 16
[2024-07-16 08:35] VITALS: BP 158/85; PULSE 81; RESP 17; TEMP 98.1; O2SAT 97
--- NOTE | 2024-07-16 09:54 | ECG ---
[facility] Test Date: 2024-07-14 Test Time: 17:01:45 Pat Name: JASPAL CORTEZ Department: ER Room: 0274 Gender: M Associate Technician: HEIDI : 1960 Requested By: ANGELICA PORTER Order Number: [id number] Reading MD: Seth Díaz Measurements Intervals [place] Rate: 100 P: 52 RI: 147 QRS: 35 QRSD: 82 T: 47 QT: 342 QTc: 442 Interpretive Statements Sinus tachycardia Baseline wander in lead(s) V5 Electronically Signed On 07-19-2024 15:03:45 PST by Seth Díaz Please click the below link to view image of tracing.
--- NOTE | 2024-07-16 11:57 | DVHSR ---
APPROVED REPORT EXAM: Two-dimensional and M-mode echocardiogram with Doppler and color Doppler. Blood Pressure: 137/90 mmHg INDICATION Pre-Op RISK FACTORS Height: 5'10", Weight: 180 DIMENSIONS LVDd4.8 (3.8-5.7cm)LA (2D)3.8 (1.9-4.0cm)Aortic Root3.1 (2.0-3.7cm) LVDs3.7 (2.5-4.0cm)LA (MM) (1.9-4.0cm)Aortic Cusp Exc1.9 (1.5-2.0cm) EF (%) 45.0 (55-70%)Rt. Atrium3.4 (1.9-4.0cm)Asc. Aorta cm IVSd0.8 (0.7-1.1cm)RV (D)3.4 (1.8-2.4cm) PWd0.7 (0.7-1.1cm) Mitral Valve MitralMitral Stenosis E wave0.89m/sMV Mean GR.mmHg A wave0.66m/sMV Peak GR.mmHg E/A ratio1.32D MVAcm2 DECEL [id number] 1/2 Timems Aortic Valve Aortic ValveAortic Stenosis V10.84m/Latrell Mean GR.2mmHg V21.04m/Latrell Peak GR.4mmHg LVOT Diameter2.2 (1.8-2.4cm)Doppler AVA3.07cm2 Pulmonic Valve V20.71m/s Tricuspid Valve TR Velocity2.90m/s [id number] Other Information Technically limited study due to body habitus. Conclusion lvef 55% by visual estimate nomral RV function normal atria size moderate mitral regurg noted (could be underestimated)
[2024-07-16 13:00] VITALS: BP 130/89; PULSE 81; RESP 18; TEMP 97.6; O2SAT 97
[2024-07-16] MEDS: LORazepam 2MG/ML-1ML VIAL ONE (15:43)
[2024-07-16] MEDS ORDERED: LORazepam 2MG/ML-1ML VIAL IV PRN (16:00)
[2024-07-16] MEDS: levETIRAcetam 1000 mg/100ml 100 ML IV ONE (16:26)
[2024-07-16] MEDS: HYDROcodone-ACET 5/325MG TAB PO PRN (16:54)
[2024-07-16 17:00] VITALS: BP 115/73; PULSE 96; RESP 16; TEMP 98.2; O2SAT 96
--- NOTE | 2024-07-16 17:03 | DVHPNRES ---
Progress Note Date Seen: Jul 16, 2024 Resident Creating Document: RAIMUNDO CURRY RESIDENT Medical Necessity Reason Pt with a Central, PICC or Fol: No Subjective Review of Systems This is a 63-year-old male with past medical history of traumatic brain injury presented to the with a complaint of left arm pain left arm and wrist pain. Patient apparently wandered off from his facility and was found by facility members, noticed his left wrist and forearm were deformed and painful that prompted this visit. Xray of the left wrist revealed mildly displaced comminuted fracture of the distal radius and ulna with [id number] soft tissue edema.In the ED they put sugar-tong splint in the forearm and wrist for immobilization and sling. Orthopedics evaluated the patient yesterday and recommended open reduction internal fixation today on 07/16/2024. Surgery was postponed today because patient is not medically stable to give the consent for surgery. orthopedics recommended nonoperative management for the patient as this is not life-threatening. Tele psych is consulted to assess the medical decision capacity for the patient. Patient was seen and examined on the bedside. He is alert, oriented x1. He had 1 episodes of seizure lasts 1 minutes today afternoon without any tongue biting or post ictal confusion. Ordered CT scan of the head without contrast, UDS and serum alcohol, Keppra 1000 mg IV once followed by 500 mg IV b.i.d. and neurology was consulted. Objective vital signs Vital Sign Date Time Temp Pulse Resp B/P (MAP) Pulse Ox O2 Delivery O2 Flow Rate FiO2 07/16/24 13:00 97.6 81 18 130/89 (103) 97 97.6 07/16/24 08:00 Room Air* 0 21 Total Intake and Output 07/15/24 07/15/24 07/16/24 15:00 23:00 07:00 Intake Total 120 ml 0 ml Balance 120 ml 0 ml medications Current Medications Medications Dose Ordered Sig/Cece Route Start Time Stop Time Status Last Admin Dose Admin Sodium Chloride 1,000 ml @ 60 mls/hr [id number] IV 07/14/24 23:00 07/14/24 23:00 60 MLS/HR Acetaminophen/ Hydrocodone Bitart 1 tab Q4HP PRN PO 07/14/24 23:00 07/16/24 16:54 1 TAB Ondansetron HCl 4 mg Q4HP PRN IV 07/14/24 23:00 Docusate Sodium 100 mg BIDPRN PRN PO 07/14/24 23:00 Enoxaparin Sodium 40 mg DAILY SC 07/15/24 10:00 07/15/24 10:01 40 MG Acetaminophen 650 mg Q6HP PRN PO 07/14/24 23:00 Morphine Sulfate 2 mg Q4HPRN PRN IV 07/14/24 23:00 07/15/24 10:02 2 MG Nitroglycerin 0.4 mg Q5MINP PRN SL 07/14/24 23:15 Morphine Sulfate 2 mg Q30M PRN IV 07/14/24 23:15 Levetiracetam 100 ml @ 400 mls/hr BID IV 07/16/24 22:00 Lorazepam 1 mg Q5MINP PRN IV 07/16/24 16:00 Examination Physical examination: General Appearance: Alert, Oriented X3, Cooperative, No acute distress HEENT: Atraumatic, PERRLA, EOMI, Mucous membrane moist/pink Respiratory: Clear to auscultation, Normal air movement Cardiovascular: Regular rate, Normal S1, Normal S2, No murmurs, no chest wall tenderness Abdominal: Normal bowel sounds, Soft, No tenderness, No hepatospenomegaly, No masses Extremities: Lt arm splint, No clubbing, No cyanosis, No edema, Normal pulses, No tenderness/swelling Skin: Multiple dried bruises in the Rt arm and bilateral legs, No rashes, No breakdown, No significant lesion Neuro: Normal gait, Normal speech, Strength at 5/5 X4 ext, Normal tone, Sensation intact, Cranial nerves 3-12 NL, Reflexes 2+ Psych/Mental Status: Mental status NL, Mood NL laboratory and microbiology Laboratory Tests 07/16/24 14:30 07/15/24 09:55 Test 07/15/24 09:55 Range/Units Serum Glucose 98 74-106 mg/dL Labs and/or images reviewed: Labs reviewed by me, Image(s) reviewed by me Problem List/Assessment/Plan Problem List/Assessment/Plan Assessment and Plan: # S/P mehanical fall # Comminuted fracture of distal radius and ulna, s/p arm splint and sling - Xray of the lt wrist revealed mildly displaced, comminuted fractures of the distal radius and ulna. Mild to moderate soft tissue edema.There is no evidence of dislocation, blastic, or lytic lesions. - In the ED patient underwent sugar-tong splint in the forearm and wrist for immobilization and sling. - Orthopedics evaluated the patient and recommended open reduction and internal fixation tomorrow on 07/16/24. - Surgery was postponed today because patient is not medically stable to give the consent for surgery. orthopedics recommended nonoperative management for the patient as this is not life-threatening - Tele psych is consulted to assess the medical decision capacity for the patient. - IV morphine 2 mg q.4 p.r.n. - [place] 5/325 mg q.4 p.r.n. # Break through seizure - ordered CT scan of the head without contrast, serum alcohol and UDS - IV Keppra 1000 mg once followed by 500 mg IV b.i.d. - IV Ativan 1 mg Q 5 minutes for seizure - consulted neurology # Hypokalemia - Replenished # Homelessness - Patient is homeless and consulted social media job titles for long-term placement. Diet: Regular diet PUD prohylaxis: Pepcid 20 mg daily DVT prophylaxis: Hold due to the possibility of procedure tomorrow. Goal of care discussed with the patient for more than 20 minutes full code Plan discussed with Dr. Sawyer Plan discussed with: Patient, Other My Orders My Orders Orders - RAIMUNDO CURRY Procedure Category Date Status Time Blood Alcohol LAB 07/16/24 Logged 15:51 Drug Screen LAB 07/16/24 Logged 15:51 * Neurology Consult CONS 07/16/24 Transmitted 15:51 Levetiracetam 500 PHA 07/16/24 In Process Mg/100ml (Levetiraceta 22:00 Lorazepam 2mg/Ml Inj PHA 07/16/24 In Process (Ativan Inj) 16:00 Transfer Orders XFER 07/16/24 Transmitted 15:54 *Tele Psych Consult CONS 07/16/24 Transmitted 16:[address] 07/16/24 Logged 16:30 Date of Service: Jul 16, 2024 Billing Provider: NICHOLAS SALEEM MD Common Visit Codes: [id number] INP/OBS CARE(HIGH) RAIMUNDO CURRY Jul 16, 2024 17:03 NICHOLAS SALEEM MD Jul 19, 2024 12:51
[2024-07-16 21:00] VITALS: BP 144/67; PULSE 91; RESP 18; O2SAT 96
[2024-07-17] VITALS (8 sets, daily range): BP systolic 116–150; BP diastolic 53–74; PULSE 62–89; RESP 17–20; TEMP 97.7–98.7; O2SAT 98–100
[2024-07-17] MEDS: levETIRAcetam 500 mg/100ml 100 ML IV SCH (01:22)
--- NOTE | 2024-07-17 07:14 | DVH ---
CLINICAL INFORMATION: 63 years old, Male; breakthrough seizure. TECHNIQUE: Axial imaging was obtained through the brain without contrast. Coronal and sagittal refor matted images were obtained, reviewed, and stored. Images were reviewed in brain and bone windows. A ll CT scans at this medical facility are performed using dose modulation techniques as appropriate to a performed exam including the following: Automated exposure control was utilized; adjustment of the MA and/or KV according to patient size; and use of iterative reconstruction technique. CTDIvol = 61.86, 61.86, 0.07, 0.07 mGy DLP = 2437.67 mGy-cm COMPARISON: None FINDINGS: There is no acute intracranial hemorrhage or extraaxial fluid collection. No mass effect o r midline shift. Scattered areas of hypoattenuation are seen in the periventricular and subcortical w brandon matter, which are nonspecific but most likely sequelae of small vessel ischemic disease.The vent ricles and sulci are within normal limits in size for age. Basal cisterns are patent. The calvari um is unremarkable. Paranasal sinuses and mastoid air cells are clear. IMPRESSION: 1. No CT evidence of acute intracranial abnormality. 2. Nonacute findings as described above.
[2024-07-17 11:19] LABS: Basophils # (auto) 0 10 ^3/uL (0-0.2); Basophils % (auto) 0.4 % (0.0-2.0); Eosinophils # (auto) 0.2 10 ^3/uL (0-0.8); Eosinophils % (auto) 1.5 % (0.0-7.0); Hematocrit 41.8 % (41.0-53.0); Lymphocytes # (auto) 1.2 10 ^3/uL (0.4-5.4); Lymphocytes % (auto) 10.9 % (10.0-50.0); Mean Corpuscular Hemoglobin 33.8 pg (28.0-32.0); Mean Corpuscular Hgb Conc. 33.6 g/dL (32.0-36.0); Mean Corpuscular Volume 100.7 fL (80.0-100.0); Monocytes # (auto) 1.2 10 ^3/uL (0-1.3); Monocytes % (auto) 10.7 % (0.0-12.0); Neutrophils # (auto) 8.4 10 ^3/uL (1.6-8.6); Neutrophils % (auto) 76.5 % (37.0-80.0); Nucleated Red Blood Cells % 0.2 %; Platelet Count (auto) 279 10^3/uL (140-450); Red Blood Cells 4.15 10^6/uL (4.5-5.90); Red Cell Distribution Width 13.7 % (11.8-14.3); White Blood Cell 10.9 10^3/uL (4.4-10.8)
[2024-07-17 11:25] LABS: Sodium 139 mmol/L (136-145)
[2024-07-17 11:26] LABS: Anion Gap 6 (5-15); Carbon Dioxide 22 mmol/L (20-31)
[2024-07-17 11:27] LABS: Calcium 9.8 mg/dL (8.7-10.4)
[2024-07-17 11:31] LABS: BUN/Creatinine Ratio 13.9 (10.0-20.0); Blood Urea Nitrogen 11 mg/dL (9-23); Glucose 84 mg/dL (74-106)
[2024-07-17 11:36] LABS: Chloride 111 mmol/L (98-107)
--- NOTE | 2024-07-17 13:21 | DVHPN2 ---
Progress Note - Dictate Date Seen: Jul 17, 2024 Medical Necessity Reason Pt with a Central, PICC or Fol: No Subjective Patient was lying comfortably in bed during my evaluation and informed me that he would like to refuse surgery and instead would like to be treated with conservative treatment. Patient ate this morning of his own accord and informed his nurse that he did not want any surgery. Patient is otherwise feeling well denying any other complaints or concerns during my evaluation. vital signs Vital Sign Date Time Temp Pulse Resp B/P (MAP) Pulse Ox O2 Delivery O2 Flow Rate FiO2 07/17/24 08:30 98.1 81 18 126/61 (82) 98 98.1 07/17/24 08:00 Room Air* 0 21 Total Intake and Output 07/16/24 07/16/24 07/17/24 15:00 23:00 07:00 Intake Total 250 ml 200 ml Balance 250 ml 200 ml medications Current Medications Medications Dose Ordered Sig/Cece Route Start Time Stop Time Status Last Admin Dose Admin Sodium Chloride 1,000 ml @ 60 mls/hr [id number] IV 07/14/24 23:00 07/17/24 12:08 60 MLS/HR Acetaminophen/ Hydrocodone Bitart 1 tab Q4HP PRN PO 07/14/24 23:00 07/16/24 16:54 1 TAB Ondansetron HCl 4 mg Q4HP PRN IV 07/14/24 23:00 Docusate Sodium 100 mg BIDPRN PRN PO 07/14/24 23:00 Enoxaparin Sodium 40 mg DAILY SC 07/15/24 10:00 07/15/24 10:01 40 MG Acetaminophen 650 mg Q6HP PRN PO 07/14/24 23:00 Morphine Sulfate 2 mg Q4HPRN PRN IV 07/14/24 23:00 07/15/24 10:02 2 MG Nitroglycerin 0.4 mg Q5MINP PRN SL 07/14/24 23:15 Morphine Sulfate 2 mg Q30M PRN IV 07/14/24 23:15 Levetiracetam 100 ml @ 400 mls/hr BID IV 07/16/24 22:00 07/17/24 12:07 400 MLS/HR Lorazepam 1 mg Q5MINP PRN IV 07/16/24 16:00 objective General appearance: Alert to name and place HEENT: Normal ENT inspection, pharynx normal, TMs normal Neck: Full range of motion, nontender, normal inspection Respiratory: Chest nontender, without accessory muscle use, no respiratory distress Cardiovascular: No edema, no JVD, normal peripheral pulses Gastrointestinal: Soft, nontender, no organomegaly. Musculoskeletal: Left wrist range of motion grossly limited with pain on movement, generalized edema, deformity noted to the lateral wrist, normal capillary refill, neurovascularly intact. Skin: Dry, normal color, warm Lymphatic: No adenopathy laboratory and microbiology Laboratory Tests 07/17/24 11:00 Test 07/17/24 11:00 Range/Units Serum Glucose 84 74-106 mg/dL Assessment/Plan Left comminuted and mildly displaced distal radius and ulna fractures I had a lengthy discussion with the patient and after he expressed his wishes to avoid surgery we recommend the patient be treated conservatively with a short arm cast and advised him to take it easy for the next few weeks and to follow up with our office on an outpatient basis for further evaluation and x-rays for future cast removal. Once short arm cast is applied patient may be considered for discharge from an orthopedic standpoint. He understood and agreed. Thank you for allowing us to participate in the care of your patient. Benefits, risks and treatment alternatives to surgery were discussed. Patient aware of poor outcomes with conservative management with both bone forearm fractures. Deformity/Malunion and loss of range of motion are main concerns. Arthritis and painful ROM are also more likely. Patient acknowledges all this and yet doesnt want to proceed with surgery. Plan discussed with: Patient ESTRELLA MALHOTRA Jul 17, 2024 13:21 VALE CANO MD Jul 19, 2024 07:09
--- NOTE | 2024-07-17 17:14 | DVHPNRES ---
Progress Note Date Seen: Jul 17, 2024 Resident Creating Document: RAIMUNDO CURRY RESIDENT Medical Necessity Reason Pt with a Central, PICC or Fol: No Subjective Review of Systems This is a 63-year-old male with past medical history of traumatic brain injury presented to the with a complaint of left arm pain left arm and wrist pain. Patient apparently wandered off from his facility and was found by facility members, noticed his left wrist and forearm were deformed and painful that prompted this visit. Xray of the left wrist revealed mildly displaced comminuted fracture of the distal radius and ulna with [id number] soft tissue edema.In the ED they put sugar-tong splint in the forearm and wrist for immobilization and sling. Ortho recommended the patient be treated conservatively with a short arm cast and advised him to take it easy for the next few weeks and to follow up with an outpatient basis for further evaluation and x-rays for future cast removal. Patient was examined on the bedside. He is alert oriented X 1. No overnight episodes of seizures or any other active complaints. Objective vital signs Vital Sign Date Time Temp Pulse Resp B/P (MAP) Pulse Ox O2 Delivery O2 Flow Rate FiO2 07/17/24 12:30 98.0 89 17 116/62 (80) 99 98.0 07/17/24 08:00 Room Air* 0 21 Total Intake and Output 07/16/24 07/16/24 07/17/24 15:00 23:00 07:00 Intake Total 250 ml 200 ml Balance 250 ml 200 ml medications Current Medications Medications Dose Ordered Sig/Cece Route Start Time Stop Time Status Last Admin Dose Admin Sodium Chloride 1,000 ml @ 60 mls/hr [id number] IV 07/14/24 23:00 07/17/24 12:08 60 MLS/HR Acetaminophen/ Hydrocodone Bitart 1 tab Q4HP PRN PO 07/14/24 23:00 07/17/24 15:58 1 TAB Ondansetron HCl 4 mg Q4HP PRN IV 07/14/24 23:00 Docusate Sodium 100 mg BIDPRN PRN PO 07/14/24 23:00 Enoxaparin Sodium 40 mg DAILY SC 07/15/24 10:00 07/15/24 10:01 40 MG Acetaminophen 650 mg Q6HP PRN PO 07/14/24 23:00 Morphine Sulfate 2 mg Q4HPRN PRN IV 07/14/24 23:00 07/15/24 10:02 2 MG Nitroglycerin 0.4 mg Q5MINP PRN SL 07/14/24 23:15 Morphine Sulfate 2 mg Q30M PRN IV 07/14/24 23:15 Levetiracetam 100 ml @ 400 mls/hr BID IV 07/16/24 22:00 07/17/24 12:07 400 MLS/HR Lorazepam 1 mg Q5MINP PRN IV 07/16/24 16:00 Examination Physical examination: General Appearance: Alert, Oriented X3, Cooperative, No acute distress HEENT: Atraumatic, PERRLA, EOMI, Mucous membrane moist/pink Respiratory: Clear to auscultation, Normal air movement Cardiovascular: Regular rate, Normal S1, Normal S2, No murmurs, no chest wall tenderness Abdominal: Normal bowel sounds, Soft, No tenderness, No hepatospenomegaly, No masses Extremities: Swelling and tenderness present in the Lt wrist, No clubbing, No cyanosis, No edema, Normal pulses, No tenderness/swelling Skin: Multiple dried bruises in the Rt arm and bilateral legs, No rashes, No breakdown, No significant lesion Neuro: Normal gait, Normal speech, Strength at 5/5 X4 ext, Normal tone, Sensation intact, Cranial nerves 3-12 NL, Reflexes 2+ Psych/Mental Status: Mental status NL, Mood NL laboratory and microbiology Laboratory Tests 07/17/24 11:00 Test 07/17/24 11:00 Range/Units Serum Glucose 84 74-106 mg/dL Labs and/or images reviewed: Labs reviewed by me, Image(s) reviewed by me Problem List/Assessment/Plan Problem List/Assessment/Plan Assessment and Plan: # S/P mehanical fall # Comminuted fracture of distal radius and ulna, s/p arm splint and sling - Xray of the lt wrist revealed mildly displaced, comminuted fractures of the distal radius and ulna. Mild to moderate soft tissue edema.There is no evidence of dislocation, blastic, or lytic lesions. - In the ED patient underwent sugar-tong splint in the forearm and wrist for immobilization and sling. - Ortho recommend the patient be treated conservatively with a short arm cast and advised him to take it easy for the next few weeks and to follow up with an outpatient basis for further evaluation and x-rays for future cast removal. - Pending Tele psych consultation to assess the medical decision capacity for the patient. - IV morphine 2 mg q.4 p.r.n. - [place] 5/325 mg q.4 p.r.n. # Break through seizure - ordered CT scan of the head without contrast, serum alcohol and UDS - IV Keppra 1000 mg once followed by 500 mg IV b.i.d. - IV Ativan 1 mg Q 5 minutes for seizure - Pending neurology consultation # Homelessness - Patient is homeless and consulted social media editor for long-term placement. Diet: Regular diet PUD prohylaxis: Pepcid 20 mg daily DVT prophylaxis: Lovenox 40 mg sc daily. Plan discussed with Dr. Sawyer Plan discussed with: Patient, Other Date of Service: Jul 17, 2024 Billing Provider: NICHOLAS SALEEM MD Common Visit Codes: [id number] INP/OBS CARE(HIGH) RAIMUNDO CURRY RESIDENT Jul 17, 2024 17:14 NICHOLAS SALEEM MD Jul 19, 2024 13:03
[2024-07-18 08:00] VITALS: PULSE 70; PULSE 76; RESP 16; O2SAT 100
[2024-07-18 08:46] VITALS: BP 126/66; PULSE 76; RESP 16; TEMP 96.6; O2SAT 100
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
[2024-07-18] MEDS ORDERED: KEP500T PO (11:49)
[2024-07-18 11:54] LABS: Hemoglobin 13.9 g/dL (13.5-17.5); Red Cell Distribution Width 13.7 % (11.8-14.3)
[2024-07-18 11:56] LABS: Basophils # (auto) 0 10 ^3/uL (0-0.2); Basophils % (auto) 0.5 % (0.0-2.0); Eosinophils # (auto) 0.6 10 ^3/uL (0-0.8); Eosinophils % (auto) 5.8 % (0.0-7.0); Hematocrit 40.7 % (41.0-53.0); Lymphocytes # (auto) 1.6 10 ^3/uL (0.4-5.4); Lymphocytes % (auto) 15.3 % (10.0-50.0); Mean Corpuscular Hemoglobin 34.1 pg (28.0-32.0); Mean Corpuscular Hgb Conc. 34.2 g/dL (32.0-36.0); Mean Corpuscular Volume 99.5 fL (80.0-100.0); Monocytes # (auto) 1.2 10 ^3/uL (0-1.3); Monocytes % (auto) 11.5 % (0.0-12.0); Neutrophils # (auto) 6.8 10 ^3/uL (1.6-8.6); Neutrophils % (auto) 66.9 % (37.0-80.0); Nucleated Red Blood Cells % 0.4 %; Platelet Count (auto) 291 10^3/uL (140-450); Red Blood Cells 4.09 10^6/uL (4.5-5.90); White Blood Cell 10.2 10^3/uL (4.4-10.8)
[2024-07-18 12:46] VITALS: BP 119/58; PULSE 69; RESP 15; TEMP 98.3; O2SAT 100
--- NOTE | 2024-07-18 15:28 | DVHDSRES ---
Discharge Summary Date of Admission Resident Creating Document: RAIMUNDO CURRY RESIDENT Jul 14, 2024 at 23:07 Date of Discharge: Jul 18, 2024 Admitting Diagnosis Fracture of the left radius and ulna Wounds: No wound was present Labs/Diagnostic Data: Laboratory Results Test 07/18/24 11:15 07/17/24 11:00 07/16/24 16:40 07/16/24 15:35 White Blood Count 10.2 10^3/uL (4.4-10.8) Red Blood Count 4.09 10^6/uL (4.5-5.90) Hemoglobin 13.9 g/dL (13.5-17.5) Hematocrit 40.7 % (41.0-53.0) Mean Corpuscular Volume 99.5 fL (80.0-100.0) Mean Corpuscular Hemoglobin 34.1 pg (28.0-32.0) Mean Corpuscular Hemoglobin Concent 34.2 g/dL (32.0-36.0) Red Cell Distribution Width 13.7 % (11.8-14.3) Platelet Count 291 10^3/uL (140-450) Mean Platelet Volume 9.4 fL (6.9-10.8) Neutrophils (%) (Auto) 66.9 % (37.0-80.0) Lymphocytes (%) (Auto) 15.3 % (10.0-50.0) Monocytes (%) (Auto) 11.5 % (0.0-12.0) Eosinophils (%) (Auto) 5.8 % (0.0-7.0) Basophils (%) (Auto) 0.5 % (0.0-2.0) Neutrophils # (Auto) 6.8 10 ^3/uL (1.6-8.6) Lymphocytes # (Auto) 1.6 10 ^3/uL (0.4-5.4) Monocytes # (Auto) 1.2 10 ^3/uL (0-1.3) Eosinophils # (Auto) 0.6 10 ^3/uL (0-0.8) Basophils # (Auto) 0 10 ^3/uL (0-0.2) Nucleated Red Blood Cells 0.4 % Sodium Level 139 mmol/L (136-145) Potassium Level 4.0 mmol/L (3.5-5.1) Chloride Level 111 mmol/L (98-107) Carbon Dioxide Level 22 mmol/L (20-31) Anion Gap 6 (5-15) Blood Urea Nitrogen 11 mg/dL (9-23) Creatinine 0.79 mg/dL (0.700-1.30) Glomerular Filtration Rate Calc 99 mL/min (>90) BUN/Creatinine Ratio 13.9 (10.0-20.0) Serum Glucose 84 mg/dL (74-106) Calcium Level 9.8 mg/dL (8.7-10.4) Plasma/Serum Blood Alcohol < 3.0 mg/dL (<10) POC Glucose 127 mg/dl (70-106) Test 07/15/24 09:55 Prothrombin Time 10.3 sec (9.3-11.8) Prothrombin Time INR 0.97 (0.9-1.15) Activated Partial Thromboplast Time 26.9 SEC (24.5-34.5) Hemoglobin A1c 5.2 % A1C (<5.7) Total Bilirubin 0.4 mg/dL (0.2-1.0) Aspartate Amino Transferase (AST) 17 U/L (13-40) Alanine Aminotransferase (ALT) 15 U/L (7-40) Alkaline Phosphatase 146 U/L (46-116) Total Protein 6.3 g/dL (5.7-8.2) Albumin 4.1 g/dL (3.2-4.8) Thyroid Stimulating Hormone (TSH) 3.64 uIU/mL (0.55-4.78) Other Laboratory Tests 07/18/24 11:15 07/17/24 11:00 Brief Hx & Hospital Course: This is a 63-year-old male with past medical history of traumatic brain injury presented to the with a complaint of left arm pain left arm and wrist pain. Patient apparently wandered off from his facility and was found by facility members, noticed his left wrist and forearm were deformed and painful that prompted this visit. Hospital course: Xray of the left wrist revealed mildly displaced comminuted fracture of the distal radius and ulna with [id number] soft tissue edema.In the ED they put sugar-tong splint in the forearm and wrist for immobilization and sling.Initally Orthopedics evaluated the patient and recommended open reduction and internal fixation tomorrow on 07/16/24. Surgery was postponed as the patient has no medical decision capacity to give consent for the surgery and also this was not emergent procedure . Ortho recommended the patient be treated conservatively with a short arm cast and advised him to take it easy for the next few weeks and to follow up with an outpatient basis for further evaluation and x-rays for future cast removal. During the hospital stay the patient had 1 episodes of seizure in the hospital and last 1 minute without any tongue bites and postictal confusion. the patient has a history of seizure disorder according to the caregiver and on Keppra on home and CT scan head revealed no acute intracranial abnormality and serum alcohol was less than 3. Discharge plan was discussed with the patient and the caregiver. patient is being discharged to home. Discharge diagnosis: # S/P mehanical fall # Comminuted fracture of distal radius and ulna, s/p arm splint and sling # History of seizure disorder Discharge disposition : Home Medications : Keppra 500 mg p.o. b.i.d. Follow up : PCP in 1 week Outpatient Orthopedics in 1 to 2 weeks. Consults/Reason for consult Orthopedics was consulted Operations or Procedures EXAM: XY L WRIST 3+ VIEW XRAY CLINICAL HISTORY: Trauma COMPARISON: None TECHNIQUE: XY L WRIST 3+ VIEW XRAY Findings/Impression: 3 views of robert left wrist. Mildly displaced, comminuted fractures of the distal radius and ulna. Mild to moderate soft tissue edema. There is no evidence of dislocation, blastic, or lytic lesions. No radiopaque foreign bodies. CHEST RADIOGRAPH Indication: hypoxia Technique: Single frontal view of the chest was obtained COMPARISON: None FINDINGS: No pneumothorax or consolidative infiltrates. There is central interstitial prominence. The heart is not enlarged. There are old fractures of multiple bilateral ribs, right proximal humerus, and left mid clavicle. There are postoperative changes of left humeral ORIF, not fully imaged here. IMPRESSION: 1. Central interstitial prominence may be due to mild CHF and/or reactive airways disease. 2. No other acute intrathoracic process is identified here. 3. Multiple chronic fractures as detailed above CLINICAL INFORMATION: 63 years old, Male; breakthrough seizure. TECHNIQUE: Axial imaging was obtained through the brain without contrast. Coronal and sagittal reformatted images were obtained, reviewed, and stored. Images were reviewed in brain and bone windows. All CT scans at this medical facility are performed using dose modulation techniques as appropriate to a performed exam including the following: Automated exposure control was utilized; adjustment of the MA and/or KV according to patient size; and use of iterative reconstruction technique. CTDIvol = 61.86, 61.86, 0.07, 0.07 mGy DLP = 2437.67 mGy-cm COMPARISON: None FINDINGS: There is no acute intracranial hemorrhage or extraaxial fluid collection. No mass effect or midline shift. Scattered areas of hypoattenuation are seen in the periventricular and subcortical white matter, which are nonspecific but most likely sequelae of small vessel ischemic disease.The ventricles and sulci are within normal limits in size for age. Basal cisterns are patent. The calvarium is unremarkable. Paranasal sinuses and mastoid air cells are clear. IMPRESSION: 1. No CT evidence of acute intracranial abnormality. 2. Nonacute findings as described above. Condition at Discharge: Guarded Final Diagnosis/Problems List # S/P mehanical fall # Comminuted fracture of distal radius and ulna, s/p arm splint and sling # History of seizure disorder Discharge Disposition: Home Discharge Instruct/Medications Diet: Regular Activity: No Restrictions, As Tolerated Follow Up/Referral: Follow up with PCP in 1 week Follow up with Outpatient ortho in 1 to 2 weeks Discharge Statement: "Patient was advised to return to the ER or call 911 if any headaches, dizziness, shortness of breath, chest pain, abdominal pain, bleeding, fevers, or worsening of medical condition. Patient was counseled about treatment plan, medications, possible side effects, patientverbalized understanding. All questions were answered to the best of my ability. This discharge took greater then 30 minutes in planning, reviewing documentation, counseling the patient, and discussing with other team members." ASSESSMENT ASSESSMENT Assessment # S/P mehanical fall # Comminuted fracture of distal radius and ulna, s/p arm splint and sling # History of seizure disorder RAIMUNDO CURRY RESIDENT Jul 18, 2024 15:28
[2024-07-18 16:44] VITALS: BP 115/61; PULSE 66; RESP 16; TEMP 98.4; O2SAT 100
== END 2024-07-18 17:48 | disposition home or self-care (01) | DRG 342 ==
LOC: EDBD 16:49 → ER 16:49 → OVERFLOW 23:07 → EDUNIT# 23:07 → WEST WING 07-15 21:05 → TELE-WESTW 07-17 17:09 → WEST WING 07-18 07:01
PROVIDERS: ADMIT Student in an Organized Health Care Education/Training Program; ATTEND Emergency Medicine
PROC: 2W3DX1Z Immobilization of Left Lower Arm using Splint (ICD-10-PCS; principal; 2024-07-14)
DX: S52.602A Unspecified fracture of lower end of left ulna, initial encounter for closed fracture (principal); E87.6 Hypokalemia; G40.909 Epilepsy, unspecified, not intractable, without status epilepticus; S52.502A Unspecified fracture of the lower end of left radius, initial encounter for closed fracture; W18.39XA Other fall on same level, initial encounter; Z59.00 Homelessness unspecified; Z87.820 Personal history of traumatic brain injury; Y93.89 Activity, other specified; Y92.89 Other specified places as the place of occurrence of the external cause; Y99.8 Other external cause status
CPT/HCPCS: 29125; 36415; 70450; 71045; 73090; 73110; 80048; 80053; 80320; 82962; 83036; 84132; 84443; 85025; 85610; 85730; 86850; 86900; 86901; 93005; 93306; G0378

== ENCOUNTER 2024-09-13 14:09 | Inpatient (IN) | payer OTHER, MEDICARE, MEDICAID ==
[~2024-09-13] VITALS: Ht 165.1 cm; Wt 67.2 kg
[~2024-09-13 14:09] MED LIST: KEP500T PO
[2024-09-13 14:23] VITALS: PULSE 92; RESP 17; O2SAT 92
--- NOTE | 2024-09-13 14:26 | ED.PDOC ---
Back pain HPI HPI Comments 64y M who presents to the ED via EMS for chief complaint of lower extremity pain. Pt has the following course of events: - pt is resident at care facility and pt had ground level fall 1 days prior and slipped on urine - pt has no loss of consciousness but states after fall, he was helped back into bed by staff and he has been having L sided hip pain - pt today complained to staff today of continued pain and EMS was called - EMS arrived on scene and pt had stable vitals and pt was brought to the ED - EMS states pt has history of dementia and is ax0x2 which is baseline and in the ED, states he is having L sided hip pain PMH: dementia, CHF, seizures PSH: unknown Allergies: denies Social history: denies tobacco use, denies ETOH use, denies drug use Pebbles: HPI: Poor Historian. 64-year-old male comes for assisted living by EMS. Chief complaint left hip pain and decreased mobility noted by the staff today. Patient had a fall last night. Patient is not on blood thinners. Patient has been having multiple falls in the past but denies any head or neck injury. Patient denies any pain anywhere else in his body. His left hip hurts only when he tries to move it or on palpation. REVIEW OF SYSTEMS: CONSTITUTIONAL: Denies acute: fever, diaphoresis, chills, generalized weakness. HEAD: Denies acute: headache, photophobia Eyes: Denies acute: Double vision, vision loss, eye pain, eye discharge. EARS: Denies acute: tinnitus, hearing loss, ear discharge, ear pain, THROAT: Denies acute: sore throat, swelling, difficulty swallowing , pain with swallowing, change in voice. NECK: Denies acute: neck pain, neck swelling, stiff neck. HEART: Denies acute : chest pain, palpitations, LUNGS: Denies acute: SOB, wheezing, cough, hemoptysis ABDOMEN: Denies acute: abdominal pain, Nausea, Vomiting, diarrhea, melena , hematemesis, hematochezia SKIN: Denies acute: rash, redness, lesions, itchiness. EXTREMITIES: Denies acute: calf pain, numbness, tingling, weakness, Denies acute: Low back pain. Neuro: Denies acute: focal neurological deficit, motor or sensory focal neurological deficit, tremors, seizure like activity, confusion, dizziness, change in mental status, loss of bowel or bladder function, cauda equina like symptoms. : Denies acute: dysuria, hematuria, flank pain, increase in urinary frequency. PSYCH: Denies acute: hallucination, suicidal ideation, homicidal ideation. PHYSICAL EXAM: General: no acute distress, awake and alert. Head: normocephalic, atraumatic. Neck: supple, trachea is midline, no swelling. Throat: Normal phonation. Eyes:, no erythema, no purulent discharge, no proptosis, no icterus. Heart: regular rate, regular rhythm, no significant murmur appreciated. Lungs: no apparent respiratory distress, Able to speak in full sentences. No wheezing, no rhonchi, no crackles. No stridors Clear to auscultation bilaterally. Abdomen: non tender to palpation, non distended, soft, no guarding, no rebound, + bowel sounds. Patient has a left upper extremity cast from a remote fall. Neuro: Awake, Alert, oriented to name, self, situation, follows commands GCS=15. Speech is normal. Skin: no petechia, no purpura, no cyanosis, slightly-pale, not jaundice. Lower extremities: --1/4 bilateral- Pitting edema no deformity, no focal swelling, no calf TTP. Evaluation of the left hip where the area of pain is.: There is noted tenderness to palpation over the lateral aspect of the left hip. Decreased range of motion secondary to pain. Patient is neurovascularly intact in the affected extremity. Pedal pulses palpable. Motor and sensory are present. Makes eye contact. moves all four extremities. However patient has decreased range of motion of left lower extremity secondary to left hip pain. Face: no apparent facial droop. ED COURSE: Chief Complaint: Lower Extremity Time Seen by MD: 15:11 Reviewed Notes: Nurses Notes, Store Specialist Notes, Allergies Allergies: Coded Allergies: NO KNOWN ALLERGIES (Unverified , 02/29/24) Home Meds Active Scripts Levetiracetam (KEPPRA TABLET) 500 Mg Tb, 500 MG PO BID for 30 Days, #60 TAB Prov:RAIMUNDO CURRY RESIDENT 07/18/24 Information Source: Patient, Emergency Med Personnel Mode of Arrival: EMS Past Medical History PAST MEDICAL HISTORY: Denies Surgical History: Unobtainable Family History Family History: Reviewed,noncontributory to illness, No family hx of Cancer, No family hx of DM, No family hx of Heart lesa, No family hx of HTN, No family hx ofKidney lesa, No family hx of Liver lesa, No family hx of Lung lesa, No family hx of Stroke Social History Smoker: Non-Smoker Alcohol: Denies ETOH Use Drugs: Denies Drug Use Lives In: Home Was a procedure done? Was a procedure done?: No Back Pain Differential Dx Differential Diagnosis: Fracture, Musculoskeletal Pain, Other (Hematoma, dislocation, rhabdomyolysis, neurovascular injury,) X-Ray, Labs, Meds, VS Vital Signs Date Time Temp Pulse Resp B/P (MAP) Pulse Ox O2 Delivery O2 Flow Rate FiO2 09/13/24 19:00 90 22 98/47 (64) 97 09/13/24 18:00 98 12 110/44 (66) 97 09/13/24 17:39 95 17 113/53 (73) 98 09/13/24 17:00 95 26 113/53 (73) 97 09/13/24 16:26 108/68 09/13/24 16:00 94 09/13/24 16:00 96 12 108/68 (81) 95 09/13/24 15:00 92 12 91/56 (68) 95 09/13/24 14:48 97.6 88 18 114/74 (87) 95 97.6 09/13/24 14:23 92 17 92 Room Air* 0 21 09/13/24 14:23 98.3 92 17 109/65 (80) 92 98.3 Lab Test 09/13/24 15:52 09/13/24 14:52 Range/Units White Blood Count 9.6 4.4-10.8 10^3/uL Red Blood Count 3.57 L 4.5-5.90 10^6/uL Hemoglobin 11.9 L 13.5-17.5 g/dL Hematocrit 34.7 L 41.0-53.0 % Mean Corpuscular Volume 97.2 80.0-100.0 fL Mean Corpuscular Hemoglobin 33.3 H 28.0-32.0 pg Mean Corpuscular Hemoglobin Concent 34.2 32.0-36.0 g/dL Red Cell Distribution Width 14.3 11.8-14.3 % Platelet Count 189 140-450 10^3/uL Mean Platelet Volume 8.9 6.9-10.8 fL Neutrophils (%) (Auto) 77.7 37.0-80.0 % Lymphocytes (%) (Auto) 8.0 L 10.0-50.0 % Monocytes (%) (Auto) 14.0 H 0.0-12.0 % Eosinophils (%) (Auto) 0.1 0.0-7.0 % Basophils (%) (Auto) 0.2 0.0-2.0 % Neutrophils # (Auto) 7.4 1.6-8.6 10 ^3/uL Lymphocytes # (Auto) 0.8 0.4-5.4 10 ^3/uL Monocytes # (Auto) 1.3 0-1.3 10 ^3/uL Eosinophils # (Auto) 0 0-0.8 10 ^3/uL Basophils # (Auto) 0 0-0.2 10 ^3/uL Nucleated Red Blood Cells 0.1 % Sodium Level 138 136-145 mmol/L Potassium Level 4.4 3.5-5.1 mmol/L Chloride Level 105 98-107 mmol/L Carbon Dioxide Level 25 20-31 mmol/L Anion Gap 8 5-15 Blood Urea Nitrogen 25 H 9-23 mg/dL Creatinine 1.01 0.700-1.30 mg/dL Glomerular Filtration Rate Calc 83 >90 mL/min BUN/Creatinine Ratio 24.8 H 10.0-20.0 Serum Glucose 108 H 74-106 mg/dL Lactic Acid Level 1.1 0.4-2.0 mmol/L Calcium Level 9.3 8.7-10.4 mg/dL Total Bilirubin 0.9 0.2-1.0 mg/dL Aspartate Amino Transferase (AST) 41 H 13-40 U/L Alanine Aminotransferase (ALT) 27 7-40 U/L Alkaline Phosphatase 151 H 46-116 U/L Creatine Kinase 548 H 46-171 U/L Troponin I High Sensitivity 6 </=54 ng/L B-Type Natriuretic Peptide 19.50 0-100 pg/mL Total Protein 6.3 5.7-8.2 g/dL Albumin 4.3 3.2-4.8 g/dL Urine Color Yellow Yellow Urine Clarity Clear Clear Urine pH 5.5 5.0-9.0 Urine Specific [place] 1.029 1.001-1.035 Urine Protein Trace H Negative Urine Ketones 2+ H Negative Urine Blood Negative Negative /uL Urine Nitrite Negative Negative Urine Bilirubin Negative Negative Urine Urobilinogen Normal Negative mg/dL Urine Leukocyte Esterase Negative Negative /uL Urine RBC 1 0 - 3 /hpf Urine Microscopic WBC 1 0-3 /HPF Urine Squamous Epithelial Cells Few <5 /hpf Urine Bacteria None seen None Seen /hpf Urine Mucus Few None Seen Urine Glucose Normal Normal mg/dL Current Medications Medications (Trade) Dose Ordered Sig/Cece Route Start Time Stop Time Status Last Admin Fentanyl Citrate 100 mcg ONCE ONCE IV 09/13/24 16:15 09/13/24 16:16 DC 09/13/24 16:26 Time of 1ST Reevaluation: 19:56 Reevaluation 1ST: Improved Patient Education/Counseling: Other (pt has dementia) Family Education/Counseling: No Family Present Comments Patient has history of CHF and has some bilateral lower extremity edema. Conservative fluid hydration was observed. Departure 1 Departure Time of Disposition: 16:07 Impression: Primary Impression: Fracture of distal end of left radius and ulna Additional Impressions: Hip fracture, left Rib fracture Closed intertrochanteric fracture Intertrochanteric fracture of left femur Rhabdomyolysis Disposition: ADMITTED INPATIENT Admit to: [facility] Condition: Guarded Discharged With: Self Critical Care Note Critical Care Time?: No I personally scribed for VERN CARR DO ([email or web address]) on 09/13/24 at 14:26. Electronically submitted by Kimberli Teresa ([email or web address]). I personally scribed for VERN CARR DO ([email or web address]) on 09/13/24 at 15:11. Electronically submitted by Kimberli Teresa ([email or web address]). I personally scribed for VERN CARR DO ([email or web address]) on 09/13/24 at 15:17. Electronically submitted by Kimberli Teresa ([email or web address]). VERN CARR DO Sep 13, 2024 14:26
--- NOTE | 2024-09-13 15:54 | DVH ---
Exam: CT CT AB PEL WO CON-NO ORAL OR IV History: fall, L hip pain Comparison Study: None available at time of dictation. TECHNIQUE: Multidetector CT of the abdomen and pelvis without IV contrast. Axial, coronal and sagitta l multiplanar reformats were obtained from the axial data set by the technologist. Radiation Dose Information: CT Dose: CTDI volume is 10.24 mGy. Dose-length product is 519.99 mGy*cm FINDINGS: Basilar atelectasis. Partially visualized heart is unremarkable. The gallbladder is unremarkable. Liver, spleen, pancreas and adrenal glands are unremarkable. Mild bilateral pelviectasis with no obstructing calculus noted. Bilateral ureters are unremarkable. U rinary bladder is decompressed with Quinn catheter in place. Focus of air within the urinary bladder which is most likely iatrogenic. Prostate is unremarkable. Moderate sized hiatal hernia. Distended stomach. Small bowel loops unremarkable. Appendix is not defi nitely visualized with artifact from patient's hands by the side limiting evaluation of the cecum. La rge amount of fecal material within the colon. No evidence of intraperitoneal free air or free fluid. No evidence of aortic aneurysm. No significant lymphadenopathy. There is acute comminuted displaced intratrochanteric fracture of the left femur with associated soft tissue edema. The left femoral head remains within the acetabulum. Sclerotic focus over the left il iac bone which may represent a bone island/blastic lesion. Multilevel moderate to severe degenerative changes of the lumbar spine. Mild chronic loss of superior vertebral body height of L3 with multilev el loss of vertebral height of the lower thoracic spine of unknown chronicity, likely chronic. Subacu te fracture of right-sided posterior lateral ribs 9 and 8. Multiple subacute to chronic left-sided ri b fractures. IMPRESSION: Acute comminuted, displaced intratrochanteric fracture of the left femur with associated soft tissue edema. Moderate sized hiatal hernia. Constipation Appendix is not definitely visualized. Without visualization of the appendix, can not exclude acute appendicitis. Acute/subacute comminuted left distal radius and ulnar fractures. Rib fractures as detailed above.
[2024-09-13 16:13] LABS: Basophils # (auto) 0 10 ^3/uL (0-0.2); Basophils % (auto) 0.2 % (0.0-2.0); Eosinophils # (auto) 0 10 ^3/uL (0-0.8); Eosinophils % (auto) 0.1 % (0.0-7.0); Hematocrit 34.7 % (41.0-53.0); Hemoglobin 11.9 g/dL (13.5-17.5); Lymphocytes # (auto) 0.8 10 ^3/uL (0.4-5.4); Mean Corpuscular Hemoglobin 33.3 pg (28.0-32.0); Mean Corpuscular Hgb Conc. 34.2 g/dL (32.0-36.0); Mean Corpuscular Volume 97.2 fL (80.0-100.0); Monocytes # (auto) 1.3 10 ^3/uL (0-1.3); Neutrophils # (auto) 7.4 10 ^3/uL (1.6-8.6); Neutrophils % (auto) 77.7 % (37.0-80.0); Nucleated Red Blood Cells % 0.1 %; Platelet Count (auto) 189 10^3/uL (140-450); Red Blood Cells 3.57 10^6/uL (4.5-5.90); Red Cell Distribution Width 14.3 % (11.8-14.3); White Blood Cell 9.6 10^3/uL (4.4-10.8)
[2024-09-13 16:26] LABS: Alanine Aminotransferase 27 U/L (7-40); Albumin 4.3 g/dL (3.2-4.8); Anion Gap 8 (5-15); BUN/Creatinine Ratio 24.8 (10.0-20.0); Calcium 9.3 mg/dL (8.7-10.4); Carbon Dioxide 25 mmol/L (20-31); Chloride 105 mmol/L (98-107); Potassium 4.4 mmol/L (3.5-5.1); Sodium 138 mmol/L (136-145); Total Protein 6.3 g/dL (5.7-8.2)
[2024-09-13] MEDS: fentaNYL CITRATE 100 MCG/2 ML VL IV ONE ×2 (16:26→21:44)
[2024-09-13 16:27] LABS: Bilirubin, Total 0.9 mg/dL (0.2-1.0)
[2024-09-13 16:29] LABS: Alkaline Phosphatase 151 U/L (46-116); Aspartate Aminotransferase 41 U/L (13-40); Blood Urea Nitrogen 25 mg/dL (9-23); Creatine Kinase IFCC 548 U/L (46-171); Glucose 108 mg/dL (74-106)
[2024-09-13 19:33] LABS: Urine Bacteria None Seen /hpf (None Seen)
[2024-09-13 19:45] LABS: Urine Blood Negative /uL (Negative); Urine Clarity Clear (Clear); Urine Color Yellow (Yellow); Urine Mucus FEW (None Seen); Urine Protein, UAD TRACE (Negative); Urine Specific Gravity 1.029 (1.001-1.035); Urine Squamous Epithelial Cell FEW /hpf (<5); Urine Urobilinogen Normal (Negative); Urine WBC 1 /HPF (0-3); Urine pH 5.5 (5.0-9.0)
[2024-09-13] MEDS: SODIUM CHLORIDE 0.9% 500 ML IV ONE ×2 (20:23→23:30)
[2024-09-13 20:47] VITALS: PULSE 101; RESP 19; O2SAT 97
--- NOTE | 2024-09-13 23:17 | DVHHPRES ---
History of Present Illness Resident Creating Document: BEBA PANDA RESDIENT History of Present Illness Is a 64-year-old man with past medical history of possible dementia, CHF and seizure brought to the hospital due to if lower limb pain since 1 day. Per patient's caregiver patient has slept on his urine 1 day back and subsequently got left-sided lower limb pain. The patient did not lose consciousness and did not have post fall nausea and vomiting. Patient has decreased cognition status (but has not been diagnosed with dementia) with occasional sundowning. He was admitted 1 month back at [facility], due to left homeless/radial fracture upon a ground level fall. He was assessed by Orthopedic, recommended outpatient follow up and stabilized with a cast, but per patient's caregiver the patient denied outpatient orthopedics follow up. He denies fever, chest pain, shortness of breath, nausea, vomiting, or any bowel or bladder habit changes. PMHx: possible dementia, CHF and seizure PSHx: Not significant Family history: Not contributory Social history: Patient was previously homeless, subsequently was living at SNF for few months, and since 4 months has been living at home with a caregiver. Previous to the fall patient was mobile and did not use walker or cane for mobility. Home medication: Levetiracetam Allergic history: No known allergies Review of Systems Review of Systems General: patient denies fever, fatigue, weaknes, sweating, any recent changes in appetite and weight HEENT: No headaches, visiual changes, hearing loss, tinnitus, nasal congestion and discharge, and sore throat. Cardiovascular: Denies chest pain, palpitations, dyspnea on exertion, orthopnea, or claudication. Respiratory: No cough, and wheezing. Gastrointestinal: Denies nausea, vomiting, dysphagia, odynophagia, heartburn, abdominal pain, flatulence, bloating, diarrhea, constipation, change in stool, or blood in stool. Genitourinary: No dysuria, hematuria, discharge, frequency, urgency, nocturia, incontinence, and urinary retention. Endocrine: No heat or cold intolerance, polydipsia, polyuria, and polyphagia. Neurological: No dizziness, extremity weakness and numbness, tremors, gait disturbance, seizures, and memory impairment. Psychiatric: Denies depression, anxiety,or insomnia. Musculoskeletal: Reports left-sided lower limb pain Skin: No rashes, itching, skin lesion, changes in hair, nail, skin texture and breast. Hematologic/Lymphatic: Denies easy bruising, bleeding tendencies, or lymph node enlargement. Allergies: Coded Allergies: NO KNOWN ALLERGIES (Unverified , 02/29/24) Exam Vital Signs Vital Signs Date Time Temp Pulse Resp B/P (MAP) Pulse Ox O2 Delivery O2 Flow Rate FiO2 09/13/24 21:44 122/49 09/13/24 21:02 98.2 95 16 98 98.2 09/13/24 20:47 Nasal Cannula* 2 28 Exam General Appearance: Alert, Oriented to person, but disoriented to time and place HEENT: Atraumatic, PERRLA, EOMI, Mucous membrane moist/pink Respiratory: Clear to auscultation, Normal air movement Cardiovascular: Regular rate, Normal S1, Normal S2, No murmurs, no chest wall tenderness Abdominal: Normal bowel sounds, Soft, No tenderness, No hepatospenomegaly, No masses Extremities: Left lower extremity is short and externally rotated, decreased range of motion due to pain, left upper limb is in cast due to previous fracture Skin: No rashes, No breakdown, No significant lesion Neuro: Normal gait, Normal speech, Strength at 5/5 X4 ext, Normal tone, Sensation intact, Cranial nerves 3-12 NL, Reflexes 2+ Psych/Mental Status: Mental status NL, Mood NL Labs/Xrays Labs Test 09/13/24 15:52 09/13/24 14:52 Range/Units White Blood Count 9.6 4.4-10.8 10^3/uL Red Blood Count 3.57 L 4.5-5.90 10^6/uL Hemoglobin 11.9 L 13.5-17.5 g/dL Hematocrit 34.7 L 41.0-53.0 % Mean Corpuscular Volume 97.2 80.0-100.0 fL Mean Corpuscular Hemoglobin 33.3 H 28.0-32.0 pg Mean Corpuscular Hemoglobin Concent 34.2 32.0-36.0 g/dL Red Cell Distribution Width 14.3 11.8-14.3 % Platelet Count 189 140-450 10^3/uL Mean Platelet Volume 8.9 6.9-10.8 fL Neutrophils (%) (Auto) 77.7 37.0-80.0 % Lymphocytes (%) (Auto) 8.0 L 10.0-50.0 % Monocytes (%) (Auto) 14.0 H 0.0-12.0 % Eosinophils (%) (Auto) 0.1 0.0-7.0 % Basophils (%) (Auto) 0.2 0.0-2.0 % Neutrophils # (Auto) 7.4 1.6-8.6 10 ^3/uL Lymphocytes # (Auto) 0.8 0.4-5.4 10 ^3/uL Monocytes # (Auto) 1.3 0-1.3 10 ^3/uL Eosinophils # (Auto) 0 0-0.8 10 ^3/uL Basophils # (Auto) 0 0-0.2 10 ^3/uL Nucleated Red Blood Cells 0.1 % Sodium Level 138 136-145 mmol/L Potassium Level 4.4 3.5-5.1 mmol/L Chloride Level 105 98-107 mmol/L Carbon Dioxide Level 25 20-31 mmol/L Anion Gap 8 5-15 Blood Urea Nitrogen 25 H 9-23 mg/dL Creatinine 1.01 0.700-1.30 mg/dL Glomerular Filtration Rate Calc 83 >90 mL/min BUN/Creatinine Ratio 24.8 H 10.0-20.0 Serum Glucose 108 H 74-106 mg/dL Lactic Acid Level 1.1 0.4-2.0 mmol/L Calcium Level 9.3 8.7-10.4 mg/dL Total Bilirubin 0.9 0.2-1.0 mg/dL Aspartate Amino Transferase (AST) 41 H 13-40 U/L Alanine Aminotransferase (ALT) 27 7-40 U/L Alkaline Phosphatase 151 H 46-116 U/L Creatine Kinase 548 H 46-171 U/L Troponin I High Sensitivity 6 </=54 ng/L B-Type Natriuretic Peptide 19.50 0-100 pg/mL Total Protein 6.3 5.7-8.2 g/dL Albumin 4.3 3.2-4.8 g/dL Urine Color Yellow Yellow Urine Clarity Clear Clear Urine pH 5.5 5.0-9.0 Urine Specific [place] 1.029 1.001-1.035 Urine Protein Trace H Negative Urine Ketones 2+ H Negative Urine Blood Negative Negative /uL Urine Nitrite Negative Negative Urine Bilirubin Negative Negative Urine Urobilinogen Normal Negative mg/dL Urine Leukocyte Esterase Negative Negative /uL Urine RBC 1 0 - 3 /hpf Urine Microscopic WBC 1 0-3 /HPF Urine Squamous Epithelial Cells Few <5 /hpf Urine Bacteria None seen None Seen /hpf Urine Mucus Few None Seen Urine Glucose Normal Normal mg/dL Assessment/Plan Assessment/Plan Hip fracture History of left radius and ulnar bone fracture Possible osteoporosis Hypotension Possible rhabdomyolysis Count shows, acute comminuted, displaced intratrochanteric fracture of the left femur with associated soft tissue edema, and rib fracture Consulted orthopedics Pain management IV fluid CPK trend History of seizure Continue levetiracetam Moderate anemia DIET: Regular diet DVT PROPHYLAXIS: Lovenox GI PROPHYLAXIS:: Protonix CODE STATUS: Full code DISPOSITION: Med surge Patient's status and plan discussed with the patient and the patient's caregiver through the phone. Case discussed with Dr. Porter Plan discussed with: Patient, Other (RN) Date of Service: Sep 13, 2024 Billing Provider: NEDA PORTER MD Common Visit Codes: [id number] INP/OBS CARE (HIGH) Secondary Visit Codes: [id number] CARE PLAN 30 MINUTES BEBA PANDA Sep 13, 2024 23:17 NEDA PORTER MD Sep 14, 2024 12:51
[2024-09-13] MEDS ORDERED: ACETAMINOPHEN 325 MG TAB PO PRN (23:30)
[2024-09-13] MEDS ORDERED: ONDANSETRON HCL 4 MG/2 ML VIAL IV PRN (23:30)
[2024-09-14] VITALS (10 sets, daily range): BP systolic 106–126; BP diastolic 56–69; PULSE 89–108; RESP 14–19; TEMP 97.6–99; O2SAT 93–100
[2024-09-14 00:18] LABS: Amphetamine Screen, Urine Neg (NEGATIVE); Barbiturate Scree,Urine Neg (NEGATIVE); Benzodiazephine Screen, Urine Pos (NEGATIVE); Cannabinoid Screen, Urine Neg (NEGATIVE); Cocaine Screen, Urine Neg (NEGATIVE); Opiate Scree,Urine Pos (NEGATIVE); Phencyclidine Screen, Urine Neg (NEGATIVE)
[2024-09-14] MEDS: MORPHINE SULFATE INJ 2 MG/ml SYRG IV PRN (03:37)
[2024-09-14 07:23] LABS: Basophils # (auto) 0 10 ^3/uL (0-0.2); Basophils % (auto) 0.3 % (0.0-2.0); Eosinophils # (auto) 0 10 ^3/uL (0-0.8); Hematocrit 34.3 % (41.0-53.0); Hemoglobin 11.5 g/dL (13.5-17.5); Lymphocytes # (auto) 1.1 10 ^3/uL (0.4-5.4); Lymphocytes % (auto) 10.3 % (10.0-50.0); Mean Corpuscular Hemoglobin 33.2 pg (28.0-32.0); Mean Corpuscular Hgb Conc. 33.6 g/dL (32.0-36.0); Mean Corpuscular Volume 98.8 fL (80.0-100.0); Monocytes # (auto) 1.5 10 ^3/uL (0-1.3); Monocytes % (auto) 15.1 % (0.0-12.0); Neutrophils # (auto) 7.6 10 ^3/uL (1.6-8.6); Neutrophils % (auto) 74.3 % (37.0-80.0); Nucleated Red Blood Cells % 0.1 %; Platelet Count (auto) 175 10^3/uL (140-450); Red Blood Cells 3.47 10^6/uL (4.5-5.90); Red Cell Distribution Width 14.1 % (11.8-14.3); White Blood Cell 10.3 10^3/uL (4.4-10.8)
[2024-09-14 07:35] LABS: Partial Thromboplastin Time 25.2 SEC (24.5-34.5); Prothrombin Time 10.6 sec (9.3-11.8)
--- NOTE | 2024-09-14 07:43 | DVHINCON2 ---
ESTRELLA MALHOTRA 09/14/24 0743: Date of service: Sep 14, 2024 Reason for Consultation Left hip fracture History of Present Illness Mr. Rogel is a 64-year-old male who was brought to the hospital after his caregiver found the patient had stepped on his urine and has been experiencing pain in the inability to bear weight on his left side since the incident. Patient has a possible history of dementia but reports that he was ambulating with the assistance of a walker before this most recent fall. Patient denied any head trauma, loss of consciousness, chest pain, shortness of breath, nausea, vomiting, fever, or chills. Past Medical History CHF, seizure, possible dementia Past Surgical History Denies Family History: Patient reports no known family medical history. Family History Noncontributory Social History Patient denies smoking, EtOH, or illicit substance abuse Allergies: Coded Allergies: NO KNOWN ALLERGIES (Unverified , 02/29/24) Home Meds Active Scripts Levetiracetam (KEPPRA TABLET) 500 Mg Tb, 500 MG PO BID for 30 Days, #60 TAB Prov:RAIMUNDO CURRY RESIDENT 07/18/24 Current Medications Current Medications Medications (Trade) Dose Ordered Sig/Cece Route PRN Reason Start Time Stop Time Status Last Admin Acetaminophen (Tylenol Tablet) 650 mg Q6HP PRN PO PAIN SCALE 1-3 OR TEMP>100.4 09/13/24 23:30 Acetaminophen/ Hydrocodone Bitart ([place] 5/325MG Tab) 1 tab Q4HP PRN PO MODERATE PAIN (4-6 PAIN SCALE) 09/13/24 23:30 Ondansetron HCl (Zofran) 4 mg Q4HP PRN IV NAUSEA / VOMITING 09/13/24 23:30 Morphine Sulfate 2 mg Q4HPRN PRN IV SEVERE PAIN (7-10 PAIN SCALE) 09/13/24 23:30 09/14/24 03:37 Enoxaparin Sodium (Lovenox) 40 mg DAILY SC 09/14/24 10:00 Levetiracetam (Keppra Tablet) 500 mg BID PO 09/14/24 10:00 Sodium Chloride 1,000 ml @ 75 mls/hr [id number] IV 09/13/24 23:30 Review of Systems 10 point review of systems negative except as per HPI Vital Signs Vital Signs Date Time Temp Pulse Resp B/P (MAP) Pulse Ox O2 Delivery O2 Flow Rate FiO2 09/14/24 05:00 98.4 100 19 113/62 (79) 95 98.4 09/14/24 02:30 Room Air* 0 21 Physical Exam General appearance: Alert to name and place HEENT: Normal ENT inspection, pharynx normal, TMs normal Neck: Full range of motion, nontender, normal inspection Respiratory: Chest nontender, without accessory muscle use, no respiratory distress Cardiovascular: No edema, no JVD, normal peripheral pulses Gastrointestinal: Soft, nontender, no organomegaly. Musculoskeletal: Left hip range of motion grossly limited with pain on slight movement, no calf tenderness, normal capillary refill, no pedal edema, neurovascularly intact. Skin: Dry, normal color, warm Lymphatic: No adenopathy Labs/Diagnostic Data Labs Test 09/14/24 06:56 09/13/24 15:52 09/13/24 14:52 Range/Units White Blood Count 10.3 4.4-10.8 10^3/uL Red Blood Count 3.47 L 4.5-5.90 10^6/uL Hemoglobin 11.5 L 13.5-17.5 g/dL Hematocrit 34.3 L 41.0-53.0 % Mean Corpuscular Volume 98.8 80.0-100.0 fL Mean Corpuscular Hemoglobin 33.2 H 28.0-32.0 pg Mean Corpuscular Hemoglobin Concent 33.6 32.0-36.0 g/dL Red Cell Distribution Width 14.1 11.8-14.3 % Platelet Count 175 140-450 10^3/uL Mean Platelet Volume 9.7 6.9-10.8 fL Neutrophils (%) (Auto) 74.3 37.0-80.0 % Lymphocytes (%) (Auto) 10.3 10.0-50.0 % Monocytes (%) (Auto) 15.1 H 0.0-12.0 % Eosinophils (%) (Auto) 0.0 0.0-7.0 % Basophils (%) (Auto) 0.3 0.0-2.0 % Neutrophils # (Auto) 7.6 1.6-8.6 10 ^3/uL Lymphocytes # (Auto) 1.1 0.4-5.4 10 ^3/uL Monocytes # (Auto) 1.5 H 0-1.3 10 ^3/uL Eosinophils # (Auto) 0 0-0.8 10 ^3/uL Basophils # (Auto) 0 0-0.2 10 ^3/uL Nucleated Red Blood Cells 0.1 % Hemoglobin A1c 4.7 <5.7 % A1C Lactic Acid Level 1.1 0.4-2.0 mmol/L Troponin I High Sensitivity 6 </=54 ng/L B-Type Natriuretic Peptide 19.50 0-100 pg/mL Urine Color Yellow Yellow Urine Clarity Clear Clear Urine pH 5.5 5.0-9.0 Urine Specific [place] 1.029 1.001-1.035 Urine Protein Trace H Negative Urine Ketones 2+ H Negative Urine Blood Negative Negative /uL Urine Nitrite Negative Negative Urine Bilirubin Negative Negative Urine Urobilinogen Normal Negative mg/dL Urine Leukocyte Esterase Negative Negative /uL Urine RBC 1 0 - 3 /hpf Urine Microscopic WBC 1 0-3 /HPF Urine Squamous Epithelial Cells Few <5 /hpf Urine Bacteria None seen None Seen /hpf Urine Mucus Few None Seen Urine Glucose Normal Normal mg/dL Urine Opiates Screen Pos NEGATIVE Urine Fentanyl Screen Neg NEGATIVE Urine Barbiturates Screen Neg NEGATIVE Urine Phencyclidine Screen Neg NEGATIVE Urine Amphetamines Screen Neg NEGATIVE Urine Benzodiazepines Screen Pos NEGATIVE Urine Cocaine Screen Neg NEGATIVE Urine Cannabinoids Screen Neg NEGATIVE Abdomen and pelvic CT scan reviewed and demonstrated: Acute comminuted, displaced intratrochanteric fracture of the left femur with associated soft tissue edema. Moderate sized hiatal hernia. Constipation Appendix is not definitely visualized. Without visualization of the appendix, can not exclude acute appendicitis. Acute/subacute comminuted left distal radius and ulnar fractures. Rib fractures as detailed above. Assessment Left comminuted displaced intertrochanteric hip fracture Plan/Recommendation I had a lengthy discussion with the patient regarding nonoperative versus operative management and after discussing his case with Dr. Muniz we have recommended an open versus closed IM nail fixation of his left intertrochanteric hip fracture. I discussed all of the risks and complications involved with surgery including but not limited to bleeding, infection, nerve injury, chronic pain, nonunion, malunion, need for further surgery, blood clots, DVT, PE, cardiac and pulmonary complications, and even . He understood and agreed to proceed with the surgery. We will plan to undergo surgery later today with Dr. Muniz if schedule allows and patient remains medically stable. Thank you for allowing us to participate in the care of your patient. Plan discussed with: Patient AME MUNIZ MD 09/14/24 1209: Date of service: Sep 14, 2024 Family History: Patient reports no known family medical history. Allergies: Coded Allergies: NO KNOWN ALLERGIES (Unverified , 02/29/24) Home Meds Active Scripts Levetiracetam (KEPPRA TABLET) 500 Mg Tb, 500 MG PO BID for 30 Days, #60 TAB Prov:RAIMUNDO CURRY RESIDENT 07/18/24 Plan/Recommendation Patient is alert at times but then gets confused easily and needs to be reoriented. He has no family who is power of prosecuting attorney to make decision making for the patient. At this point due to the nature of hip fractures in the elderly and complications associated with being bed bound for extended periods of time, I am declaring the surgery as an emergency to prevent bleeding from the hip fracture. It is the unger standard to operate on hip fractures in the elderly within 24 hours of injury for best clinical outcome. Plan discussed with: Other ESTRELLA MALHOTRA Sep 14, 2024 07:43 AME MUNIZ MD Sep 14, 2024 12:09
[2024-09-14 07:49] LABS: Alanine Aminotransferase 22 U/L (7-40); Albumin 4.4 g/dL (3.2-4.8); Anion Gap 12 (5-15); Aspartate Aminotransferase 35 U/L (13-40); BUN/Creatinine Ratio 26.2 (10.0-20.0); Blood Urea Nitrogen 22 mg/dL (9-23); Carbon Dioxide 22 mmol/L (20-31); Chloride 105 mmol/L (98-107); Glucose 100 mg/dL (74-106); Potassium 3.8 mmol/L (3.5-5.1); Sodium 139 mmol/L (136-145); Total Protein 6.7 g/dL (5.7-8.2)
[2024-09-14 07:53] LABS: Alkaline Phosphatase 133 U/L (46-116); Bilirubin, Total 1.4 mg/dL (0.2-1.0)
[2024-09-14 07:54] LABS: Creatine Kinase IFCC 373 U/L (46-171)
--- NOTE | 2024-09-14 09:40 | DVH ---
CLINICAL INDICATION: LEFT HIP FX PRE-OP EVAL TECHNIQUE: XY PELVIS AP Comparison: None FINDINGS/IMPRESSION: : Complex comminuted and displaced and angulated intertrochanteric fracture.
[2024-09-14] MEDS: ENOXAPARIN SOD 40 MG/0.4 ML SYRINGE SC SCH (10:00)
[2024-09-14] MEDS: levETIRAcetam 500 MG TAB PO SCH (10:00)
[2024-09-14] MEDS: BUPIVACAINE 0.25% INJ 50ML VIAL ONE ×2 (10:23→13:12)
[2024-09-14] MEDS: TRANEXAMIC ACID 0 ML ONE (10:26)
[2024-09-14] MEDS ORDERED: KETOROLAC TROMETH 30 MG/ML 1ML VIAL ONE (10:28)
--- NOTE | 2024-09-14 11:48 | DVH ---
CHEST RADIOGRAPH Indication: Pain Technique: Single frontal view of the chest was obtained COMPARISON: XY CHEST XRAY 1 VIEW on DOS: 04/03/24, XY CHEST PORTABLE on DOS: 02/29/24 FINDINGS: Lines and Tubes: None Lungs: Clear Pleura: No effusion. No pneumothorax. Cardiomediastinal contours: Unremarkable Bones: Unremarkable IMPRESSION: No acute disease.
[2024-09-14] MEDS: ceFAZolin 2 GM/D5W100ml 100 ML IV ONE (12:10)
[2024-09-14] MEDS ORDERED: HYDROmorphone HCL 2 MG/ML VL/or syr IV PRN (12:30)
[2024-09-14] MEDS: SODIUM CHLORIDE 0.9% 1,000 ML IV SCH (12:50)
[2024-09-14] MEDS: Lidocaine/Epinephrine 1%-1:100,000 30ML VL ONE (13:12)
--- NOTE | 2024-09-14 13:12 | DVH ---
CLINICAL INDICATION: fracture, pain TECHNIQUE: 2 radiographic views of the left wrist were obtained. Comparison: None FINDINGS/IMPRESSION: Displaced and comminuted fracture of the distal radius and distal ulna. Overlying casting material o bscures evaluation of osseous detail. Possible fracture of the 5th metacarpal shaft.
--- NOTE | 2024-09-14 14:16 | DVH ---
XY C ARM FLUOROSCOPY UP TO 60MIN, HISTORY: OPEN LEFT IM NAIL TECHNICAL DATA: 5 intraoperative fluoroscopic spot images were obtained of the hip. COMPARISON: None FINDINGS/IMPRESSION: C-arm fluoroscopic images were obtained for anatomic localization. The images are of low resolution b ut demonstrate instrumentation over the hip . Total fluoroscopy time was 86.8 seconds. 6.56 mGy Plemike e see the operative report for further details.
--- NOTE | 2024-09-14 15:50 | DVHPNRES ---
Progress Note Date Seen: Sep 14, 2024 Resident Creating Document: JERONIMO JORDAN RESIDENT Medical Necessity Reason Pt with a Central, PICC or Fol: No Subjective Review of Systems Is a 64-year-old man with past medical history of possible dementia, CHF and seizure brought to the hospital due to if lower limb pain since 1 day. Per patient's caregiver patient has slept on his urine 1 day back and subsequently got left-sided lower limb pain. The patient did not lose consciousness and did not have post fall nausea and vomiting. Patient has decreased cognition status (but has not been diagnosed with dementia) with occasional sundowning. He was admitted 1 month back at [facility], due to left homeless/radial fracture upon a ground level fall. He was assessed by Orthopedic, recommended outpatient follow up and stabilized with a cast, but per patient's caregiver the patient denied outpatient orthopedics follow up. He denies fever, chest pain, shortness of breath, nausea, vomiting, or any bowel or bladder habit changes. PMHx: possible dementia, CHF and seizure PSHx: Not significant Family history: Not contributory Social history: Patient was previously homeless, subsequently was living at SNF for few months, and since 4 months has been living at home with a caregiver. Previous to the fall patient was mobile and did not use walker or cane for mobility. Home medication: Levetiracetam Allergic history: No known allergies Patient seen and examined at the bedside. He is alert and oriented name but otherwise not oriented to time or place. Patient was undergoing surgery. Review of Systems: HEENT:Normal, CVS:Normal Objective vital signs Vital Sign Date Time Temp Pulse Resp B/P (MAP) Pulse Ox O2 Delivery O2 Flow Rate FiO2 09/14/24 14:59 98.1 95 18 111/64 (80) 98 98.1 09/14/24 13:33 Mask 6.0 09/14/24 13:33 100 Total Intake and Output 09/13/24 09/13/24 09/14/24 15:00 23:00 07:00 Intake Total 0 ml Output Total 100 ml 400 ml Balance -100 ml -400 ml medications Current Medications Medications Dose Ordered Sig/Cece Route Start Time Stop Time Status Last Admin Dose Admin Acetaminophen 650 mg Q6HP PRN PO 09/13/24 23:30 Acetaminophen/ Hydrocodone Bitart 1 tab Q4HP PRN PO 09/13/24 23:30 Ondansetron HCl 4 mg Q4HP PRN IV 09/13/24 23:30 Morphine Sulfate 2 mg Q4HPRN PRN IV 09/13/24 23:30 09/14/24 07:55 2 MG Enoxaparin Sodium 40 mg DAILY SC 09/14/24 10:00 Levetiracetam 500 mg BID PO 09/14/24 10:00 Sodium Chloride 1,000 ml @ 75 mls/hr [id number] IV 09/13/24 23:30 09/14/24 15:35 75 MLS/HR Cefazolin Sodium 50 ml @ 100 mls/hr Q8H IV 09/14/24 20:00 09/15/24 12:29 Examination General Appearance: Alert, A&O x1, not oriented to time or place HEENT: Atraumatic, PERRLA, EOMI, Mucous membrane moist/pink Respiratory: Clear to auscultation, Normal air movement Cardiovascular: Regular rate, Normal S1, Normal S2, No murmurs, no chest wall tenderness Abdominal: Normal bowel sounds, Soft, No tenderness, No hepatospenomegaly, No masses Extremities: Left lower extremity is short and externally rotated, decreased range of motion due to pain, left upper limb is in cast due to previous fracture Skin: No rashes, No breakdown, No significant lesion Neuro: Normal gait, Normal speech, Strength at 5/5 X4 ext, Normal tone, Sensation intact, Cranial nerves 3-12 NL, Reflexes 2+ Psych/Mental Status: Mental status NL, Mood NL laboratory and microbiology Laboratory Tests 09/14/24 06:56 Test 09/14/24 06:56 Range/Units Serum Glucose 100 74-106 mg/dL Labs and/or images reviewed: Labs reviewed by me, Image(s) reviewed by me Problem List/Assessment/Plan Problem List/Assessment/Plan Acute Left comminuted displaced intertrochanteric hip fracture undergoing open versus closed IM nail fixation of his left intertrochanteric hip fracture 09/14 Subacute comminuted left distal radius and ulnar bone fracture Subacute rib fractures Fifth metacarpal shaft fracture Possible osteoporosis Hypotension Possible rhabdomyolysis CT abdomen shows, acute comminuted, displaced intratrochanteric fracture of the left femur with associated soft tissue edema, and rib fracture Left Wrist x-ray showed Possible fracture of the 5th metacarpal shaft Consulted orthopedics -recommended open versus closed IM nail fixation of his left intertrochanteric hip fracture 09/14 Pain management IV fluid CPK downtrending Addendum: I discussed with ortho service and agreed to proceed with surgery. Benefit is more than risks. Pt would benefit from surgery. No family was able to make decision for pt. Pt is alert and oriented but has underlying dementia Moderate hiatal hernia Constipation Pantoprazole 40 mg IV daily MiraLax 17 g p.o. daily and docusate 100 mg p.o. History of seizure Continue levetiracetam 500 mg p.o. b.i.d. Anemia, likely normocytic Monitor Likely dementia currently A&O x1 DIET: Regular diet DVT PROPHYLAXIS: Lovenox GI PROPHYLAXIS:: Protonix CODE STATUS: Full code DISPOSITION: Med [facility] [place] Patient's status and plan discussed with the patient and the patient's caregiver through the phone. Case discussed with Dr. Gupta Plan discussed with: Patient Date of Service: Sep 14, 2024 Billing Provider: DARRYN GUPTA DO Common Visit Codes: [id number] INP/OBS CARE(HIGH) JREONIMO JORDAN RESIDENT Sep 14, 2024 15:50 DARRYN GUPTA DO Sep 16, 2024 20:47
[2024-09-14] MEDS ORDERED: TRAZ-227 PO (16:32)
[2024-09-14] MEDS ORDERED: LORA-1121 GT (16:32)
[2024-09-14] MEDS ORDERED: HYDR-4798 PO (16:32)
[2024-09-14] MEDS ORDERED: QUET50TA27 PO (16:32)
[2024-09-14] MEDS: PANTOPRAZOLE 40 MG/10 ML VIAL INJ IV ONE (16:47)
[2024-09-14] MEDS: DOCUSATE SOD 100 MG CAP PO ONE (16:47)
[2024-09-14] MEDS: POLYETHYLENE GLYCOL 17 GM PWDR PO ONE (16:48)
[2024-09-14] MEDS: QUEtiapine FUMARATE 25 MG TAB PO ONE (17:19)
--- NOTE | 2024-09-14 17:52 | DVHOP2 ---
Operative Report - 2 Report Details Date: 09/14/24 Preop Diagnosis: Left hip intertrochanteric fracture Postop Diagnosis: as above Surgeon: Beto Dunn MD Card Setter: Quang ROOT Anesthesiologist: Andrea HATCH Anesthesia: General Implant: ITS short troch nail Consent: The patient was informed of the risks and benefits of the procedure. These include but are not limited to complications of anesthesia, postoperative infection, incomplete relief of symptoms, recurrence of symptoms, damage to blood vessels, nerves and tendons, deep venous thrombosis, pulmonary embolism and possible need for repeat surgery in the future. Estimated Blood Loss: 100 cc Name of Procedure Performed Open reduction internal fixation of left hip fracture; intraop fluoro Procedure Details Procedure Details: FINDINGS: IT fracture, reduced on the fracture table. DESCRIPTION OF PROCEDURE: In the preoperative holding area, the consent was reviewed and the appropriate extremity was verified by the patient and marked with my initials. The patient was then transferred to the operating theatre. Patient was placed on a fracture table. Appropriate anesthetia was induced. All bony prominences were well padded. A time out was performed verifying the side and site of surgery according to standard protocol. Preoperative antibiotics were given. The extremity was then prepped and draped in the usual sterile fashion. Using c-arm, the fracture was reduced using the fracture table and a combination of maneuvers including traction, internal rotation, and flexion. An incision was made over the greater trochanter confirming correct position with c-arm. A guide wire was drilled into the tip of the greater trochanter, centered A to P. We used the starting reamer to gain entry to the femoral canal. A short nail was then placed. A guide pin was then drilled in the center of the femoral head confirmed using fluoroscopy. We measured the screw lengths. Using a cannulated drill, we drilled the lateral cortex. The screws were then introduced. Once positioned, we once again confirmed that the screws were with the femoral head. Attention was turned distally. We used the targeting device to drill through the nail and the femur. This was measured using the device, and the screw was placed with good purchase. Final xrays were taken showing the hardware in perfect position. The wound was copiously irrigated. No fractures were seen on the rest of the femur. The fascia was closed with #1 Vicryl, the skin closed #2-0 Vicryl, and florin. A dry sterile dressing was placed on the patient. The patient was transferred to the recovery room in stable condition. Condition Good Disposition Still a Patient BETO DUNN MD Sep 14, 2024 17:52
[2024-09-14] MEDS: DOCUSATE SOD 100 MG CAP PO SCH (21:16)
[2024-09-14] MEDS: ceFAZolin 1GM/50ML 50 ML IV SCH (21:17)
[2024-09-14] MEDS: traZODone HCL 50 MG TAB PO SCH (21:17)
[2024-09-15] VITALS (7 sets, daily range): BP systolic 78–126; BP diastolic 47–78; PULSE 81–96; RESP 16–18; TEMP 98–98.6; O2SAT 93–100
[2024-09-15 06:43] LABS: Basophils # (auto) 0 10 ^3/uL (0-0.2); Eosinophils # (auto) 0 10 ^3/uL (0-0.8); Hematocrit 29.8 % (41.0-53.0); Hemoglobin 9.2 g/dL (13.5-17.5); Lymphocytes # (auto) 0.7 10 ^3/uL (0.4-5.4); Lymphocytes % (auto) 3.2 % (10.0-50.0); Mean Corpuscular Hemoglobin 33.5 pg (28.0-32.0); Mean Corpuscular Hgb Conc. 30.9 g/dL (32.0-36.0); Mean Corpuscular Volume 108.4 fL (80.0-100.0); Monocytes # (auto) 1.7 10 ^3/uL (0-1.3); Monocytes % (auto) 8.2 % (0.0-12.0); Neutrophils # (auto) 18.4 10 ^3/uL (1.6-8.6); Neutrophils % (auto) 88.6 % (37.0-80.0); Platelet Count (auto) 130 10^3/uL (140-450); Red Blood Cells 2.75 10^6/uL (4.5-5.90); Red Cell Distribution Width 16.1 % (11.8-14.3); White Blood Cell 20.8 10^3/uL (4.4-10.8)
--- NOTE | 2024-09-15 09:33 | DVHPNRES ---
Progress Note Date Seen: Sep 15, 2024 Resident Creating Document: CATERINA DUBOIS RESIDENT Medical Necessity Reason Pt with a Central, PICC or Fol: No Subjective Review of Systems Is a 64-year-old man with past medical history of possible dementia, CHF and seizure brought to the hospital due to if lower limb pain since 1 day. Per patient's caregiver patient has slept on his urine 1 day back and subsequently got left-sided lower limb pain. The patient did not lose consciousness and did not have post fall nausea and vomiting. Patient has decreased cognition status (but has not been diagnosed with dementia) with occasional sundowning. He was admitted 1 month back at [facility], due to left homeless/radial fracture upon a ground level fall. He was assessed by Orthopedic, recommended outpatient follow up and stabilized with a cast, but per patient's caregiver the patient denied outpatient orthopedics follow up. He denies fever, chest pain, shortness of breath, nausea, vomiting, or any bowel or bladder habit changes. PMHx: possible dementia, CHF and seizure PSHx: Not significant Family history: Not contributory Social history: Patient was previously homeless, subsequently was living at SNF for few months, and since 4 months has been living at home with a caregiver. Previous to the fall patient was mobile and did not use walker or cane for mobility. Home medication: Levetiracetam Allergic history: No known allergies Patient seen and examined at the bedside. He is alert and oriented name but otherwise not oriented to time or place, he doesnt recall he had surgery. Patient underwent surgery yesterday Objective vital signs Vital Sign Date Time Temp Pulse Resp B/P (MAP) Pulse Ox O2 Delivery O2 Flow Rate FiO2 09/15/24 08:27 83 12 108/55 09/15/24 04:58 98.0 95 98.0 09/14/24 20:00 Room Air* 0 21 Total Intake and Output 09/14/24 09/14/24 09/15/24 15:00 23:00 07:00 Intake Total 50 ml 475 ml 1225 ml Output Total 350 ml 625 ml Balance 50 ml 125 ml 600 ml medications Current Medications Medications Dose Ordered Sig/Cece Route Start Time Stop Time Status Last Admin Dose Admin Acetaminophen 650 mg Q6HP PRN PO 09/13/24 23:30 Acetaminophen/ Hydrocodone Bitart 1 tab Q4HP PRN PO 09/13/24 23:30 Ondansetron HCl 4 mg Q4HP PRN IV 09/13/24 23:30 Morphine Sulfate 2 mg Q4HPRN PRN IV 09/13/24 23:30 09/15/24 08:27 2 MG Enoxaparin Sodium 40 mg DAILY SC 09/14/24 10:00 Levetiracetam 500 mg BID PO 09/14/24 10:00 09/14/24 21:16 500 MG Sodium Chloride 1,000 ml @ 75 mls/hr [id number] IV 09/13/24 23:30 09/15/24 05:01 75 MLS/HR Cefazolin Sodium 50 ml @ 100 mls/hr Q8H IV 09/14/24 20:00 09/15/24 12:29 09/15/24 05:01 100 MLS/HR Polyethylene Glycol 17 gm DAILY PO 09/15/24 10:00 Pantoprazole Sodium 40 mg DAILY IV 09/15/24 10:00 Docusate Sodium 100 mg BID PO 09/14/24 22:00 09/14/24 21:16 100 MG Trazodone HCl 50 mg HS PO 09/14/24 22:00 09/14/24 21:17 50 MG Quetiapine Fumarate 50 mg BID PO 09/15/24 10:00 Examination General Appearance: Alert, A&O x1, not oriented to time or place HEENT: Atraumatic, PERRLA, EOMI, Mucous membrane moist/pink Respiratory: Clear to auscultation, Normal air movement Cardiovascular: Regular rate, Normal S1, Normal S2, No murmurs, no chest wall tenderness Abdominal: Normal bowel sounds, Soft, No tenderness, No hepatospenomegaly, No masses Extremities: Left lower extremity wound covered, no bleeding Skin: No rashes, No breakdown, No significant lesion Neuro: Normal gait, Normal speech, Strength at 5/5 X4 ext, Normal tone, Sensation intact, Cranial nerves 3-12 NL, Reflexes 2+ Psych/Mental Status: Mental status NL, Mood NL laboratory and microbiology laboratory and microbiology Laboratory Tests 09/15/24 05:43 09/14/24 06:56 Test 09/14/24 06:56 Range/Units Serum Glucose 100 74-106 mg/dL Problem List/Assessment/Plan Problem List/Assessment/Plan s/p Open reduction internal fixation of left hip fracture Subacute comminuted left distal radius and ulnar bone fracture Subacute rib fractures Fifth metacarpal shaft fracture Possible osteoporosis Hypotension Possible rhabdomyolysis s/p reduction: no complications CT abdomen shows, acute comminuted, displaced intratrochanteric fracture of the left femur with associated soft tissue edema, and rib fracture Left Wrist x-ray showed Possible fracture of the 5th metacarpal shaft Consulted orthopedics -recommended open versus closed IM nail fixation of his left intertrochanteric hip fracture 09/14 Pain management IV fluid CPK downtrending Pt will go to home hospice with PT Addendum: on 09/14/2024, I discussed with ortho service and agreed to proceed with surgery. Benefit is more than risks. Pt would benefit from surgery. No family was able to make decision for pt. Pt is alert and oriented but has underlying dementia Moderate hiatal hernia Constipation Pantoprazole 40 mg IV daily MiraLax 17 g p.o. daily and docusate 100 mg p.o. History of seizure Continue levetiracetam 500 mg p.o. b.i.d. Anemia, likely normocytic Monitor Likely dementia currently A&O x1 DIET: Regular diet DVT PROPHYLAXIS: Lovenox GI PROPHYLAXIS:: Protonix CODE STATUS: Full code DISPOSITION: Med surge Patient's status and plan discussed with the patient and the patient's caregiver through the phone. Case discussed with Dr. Gupta Plan discussed with: Patient, Other (rn) Date of Service: Sep 15, 2024 Billing Provider: DARRYN GUPTA DO Common Visit Codes: [id number] INP/OBS CARE(HIGH) CATERINA DUBOIS RESIDENT Sep 15, 2024 09:33 DARRYN GUPTA DO Sep 17, 2024 07:13
[2024-09-15] MEDS: POLYETHYLENE GLYCOL 17 GM PWDR PO SCH (10:00)
[2024-09-15] MEDS: PANTOPRAZOLE 40 MG/10 ML VIAL INJ IV SCH (10:03)
[2024-09-15] MEDS: QUEtiapine FUMARATE 25 MG TAB PO SCH (10:04)
--- NOTE | 2024-09-15 10:44 | DVHPN2 ---
Progress Note - Dictate Date Seen: Sep 15, 2024 Medical Necessity Reason Pt with a Central, PICC or Fol: No Subjective Patient was lying comfortably in bed during my evaluation. I spoke with the patient's nurse who reports that the patient has not yet gotten up and walked with the help of physical therapy as of yet and has only remained in bed since surgery. Patient is otherwise feeling well denying any complaints or concerns during my evaluation. vital signs Vital Sign Date Time Temp Pulse Resp B/P (MAP) Pulse Ox O2 Delivery O2 Flow Rate FiO2 09/15/24 09:00 98.0 83 16 118/60 (79) 94 98.0 09/14/24 20:00 Room Air* 0 21 Total Intake and Output 09/14/24 09/14/24 09/15/24 15:00 23:00 07:00 Intake Total 50 ml 475 ml 1225 ml Output Total 350 ml 625 ml Balance 50 ml 125 ml 600 ml medications Current Medications Medications Dose Ordered Sig/Cece Route Start Time Stop Time Status Last Admin Dose Admin Acetaminophen 650 mg Q6HP PRN PO 09/13/24 23:30 Acetaminophen/ Hydrocodone Bitart 1 tab Q4HP PRN PO 09/13/24 23:30 Ondansetron HCl 4 mg Q4HP PRN IV 09/13/24 23:30 Morphine Sulfate 2 mg Q4HPRN PRN IV 09/13/24 23:30 09/15/24 08:27 2 MG Enoxaparin Sodium 40 mg DAILY SC 09/14/24 10:00 09/15/24 10:05 40 MG Levetiracetam 500 mg BID PO 09/14/24 10:00 09/15/24 10:04 500 MG Sodium Chloride 1,000 ml @ 75 mls/hr [id number] IV 09/13/24 23:30 09/15/24 05:01 75 MLS/HR Cefazolin Sodium 50 ml @ 100 mls/hr Q8H IV 09/14/24 20:00 09/15/24 12:29 09/15/24 05:01 100 MLS/HR Polyethylene Glycol 17 gm DAILY PO 09/15/24 10:00 Pantoprazole Sodium 40 mg DAILY IV 09/15/24 10:00 09/15/24 10:03 40 MG Docusate Sodium 100 mg BID PO 09/14/24 22:00 09/15/24 10:04 100 MG Trazodone HCl 50 mg HS PO 09/14/24 22:00 09/14/24 21:17 50 MG Quetiapine Fumarate 50 mg BID PO 09/15/24 10:00 09/15/24 10:04 50 MG objective A&O x4 in no acute distress Hip range of motion grossly limited with pain on movement Aquacel dressing clean, dry, and intact No distal edema or calf tenderness to palpation Neurovascularly intact with cap refill less than 2 seconds laboratory and microbiology Laboratory Tests 09/15/24 05:43 09/14/24 06:56 Test 09/14/24 06:56 Range/Units Serum Glucose 100 74-106 mg/dL Assessment/Plan Left comminuted displaced intertrochanteric hip fracture Continue current management as well as pain control and advised to initiate physical therapy with patient remaining weight-bearing as tolerated with the assistance of a walker. We recommend that the patient follow up with our office in 10-14 days for his 1st postoperative evaluation for wound check and further treatment discussion. Thank you for allowing us to participate in the care of your patient. Plan discussed with: Patient ESTRELLA MALHOTRA Sep 15, 2024 10:44
[2024-09-15 11:54] LABS: Alanine Aminotransferase 15 U/L (7-40); Albumin 3.4 g/dL (3.2-4.8); Alkaline Phosphatase 97 U/L (46-116); Anion Gap 7 (5-15); Aspartate Aminotransferase 21 U/L (13-40); BUN/Creatinine Ratio 24.4 (10.0-20.0); Blood Urea Nitrogen 20 mg/dL (9-23); Carbon Dioxide 25 mmol/L (20-31); Magnesium 1.8 mg/dL (1.6-2.6); Potassium 3.9 mmol/L (3.5-5.1); Sodium 140 mmol/L (136-145)
[2024-09-15 11:55] LABS: Bilirubin, Total 0.6 mg/dL (0.2-1.0)
[2024-09-15 11:57] LABS: Chloride 108 mmol/L (98-107); Glucose 123 mg/dL (74-106); Total Protein 5.4 g/dL (5.7-8.2)
[2024-09-15] MEDS: PIPERACILLIN-TAZOB 3.375GM 100 ML IV SCH (22:39)
[2024-09-16 01:00] VITALS: BP 105/61; PULSE 96; RESP 18; TEMP 98.4; O2SAT 98
[2024-09-16 05:00] VITALS: BP 101/56; PULSE 92; RESP 19; TEMP 99.5; O2SAT 96
[2024-09-16] MEDS: HYDROcodone-ACET 5/325MG TAB PO PRN (05:10)
[2024-09-16 07:19] LABS: Basophils # (auto) 0 10 ^3/uL (0-0.2); Basophils % (auto) 0.2 % (0.0-2.0); Eosinophils # (auto) 0 10 ^3/uL (0-0.8)
[2024-09-16 07:22] LABS: Hematocrit 23.9 % (41.0-53.0); Hemoglobin 8.1 g/dL (13.5-17.5); Lymphocytes # (auto) 1.3 10 ^3/uL (0.4-5.4); Lymphocytes % (auto) 14.3 % (10.0-50.0); Mean Corpuscular Hemoglobin 33.9 pg (28.0-32.0); Mean Corpuscular Hgb Conc. 33.7 g/dL (32.0-36.0); Mean Corpuscular Volume 100.4 fL (80.0-100.0); Monocytes % (auto) 10.3 % (0.0-12.0); Neutrophils % (auto) 75.2 % (37.0-80.0); Platelet Count (auto) 135 10^3/uL (140-450); Red Blood Cells 2.38 10^6/uL (4.5-5.90); Red Cell Distribution Width 14.4 % (11.8-14.3); White Blood Cell 9.3 10^3/uL (4.4-10.8)
[2024-09-16 07:45] LABS: Alanine Aminotransferase 15 U/L (7-40); Albumin 3.3 g/dL (3.2-4.8); Alkaline Phosphatase 92 U/L (46-116); Anion Gap 10 (5-15); Aspartate Aminotransferase 19 U/L (13-40); BUN/Creatinine Ratio 19.5 (10.0-20.0); Blood Urea Nitrogen 17 mg/dL (9-23); Carbon Dioxide 24 mmol/L (20-31); Glucose 99 mg/dL (74-106); Sodium 142 mmol/L (136-145)
[2024-09-16 07:46] LABS: Bilirubin, Total 0.6 mg/dL (0.2-1.0)
[2024-09-16 07:48] LABS: Calcium 8.6 mg/dL (8.7-10.4); Chloride 108 mmol/L (98-107); Potassium 3.4 mmol/L (3.5-5.1); Total Protein 5.2 g/dL (5.7-8.2)
[2024-09-16 08:39] VITALS: BP 90/55; PULSE 85; RESP 17; TEMP 98.8; O2SAT 94
[2024-09-16] MEDS: MAGNESIUM SULFATE 1GM/100ML 100 ML IV ONE (10:08)
[2024-09-16] MEDS: POTASSIUM CHL 20MEQ/50ML 50 ML IV SCH (11:40)
[2024-09-16] MEDS: SODIUM CHL 0.9% 100 ML IV SCH (11:41)
[2024-09-16 13:00] VITALS: BP 90/44; PULSE 103; RESP 17; TEMP 98.6; O2SAT 92
[2024-09-16 14:05] VITALS: BP 95/56; PULSE 59; RESP 17; O2SAT 100
[2024-09-16] MEDS: Ensure HIGH Protein Chocolate 8oz Bottle PO SCH (14:47)
--- NOTE | 2024-09-16 15:02 | DVH ---
Exam: CT CT AB PEL WO CON-NO ORAL OR IV History: R/O HEMATOME OR BLEEDING pod 2 Comparison Study: None available at time of dictation. TECHNIQUE: Multidetector CT of the abdomen was performed from lung bases to pubic symphysis. Imaging was performed without IV contrast. Axial, coronal and sagittal multiplanar reformats were obtained fr om the axial data set by the technologist. Radiation Dose Information: CT Dose: CTDI volume is 9.12 mGy. Dose-length product is 547.84 mGy*cm FINDINGS: Evaluation of solid organs is limited due to lack of intravenous contrast use. Findings: Lung Bases: No acute or significant lung base finding. Normal heart size. No pleural or pericardial effusion. Liver: The liver is normal in size. No focal lesions. Gallbladder and Biliary Tree: Unremarkable Spleen: Unremarkable Pancreas: The pancreas is grossly normal in appearance. Adrenal Glands: Unremarkable Kidneys: Kidneys are grossly normal without calculi or hydronephrosis. Bladder: Quinn catheter in the bladder Bowel: The stomach is grossly normal in appearance. Small bowel and colon are normal in caliber and d istribution. The appendix is not visualized; however, no secondary findings of acute appendicitis id entified. Ascites: Absent Lymphadenopathy: No mesenteric, retroperitoneal or periportal lymphadenopathy. Abdominal Wall and Mesentery: Unremarkable. Vasculature: The visualized abdominal aorta is normal in size and caliber. Evaluation of abdominal a nd pelvic vessels is limited due to lack of intravenous contrast. Pelvic Organs: Unremarkable Musculoskeletal: Patient is status post open reduction internal fixation of an intertrochanteric frac ture of the proximal left femur. There is a new soft tissue mass extending from the left iliac crest to the inferior portion of the gluteal muscle measuring. There are numerous small pockets of air with in this collection. This may represent hematoma can not exclude abscess tissue density is proximally 20 Hounsfield units. In the soft tissues proximal to the left femur is a linear collection of high de nsity material measuring 7 cm in length and 1.6 cm in thickness. Tissue density is material is 200 Ho unsfield units. This most likely represents calcifications from the fracture. Is unlikely to represen t acute hemorrhage since no IV contrast was given. Soft tissues: Soft tissue mass proximal to the left femoral head extending from the iliac crest on th e left to the left gluteal muscle. This contains numerous pockets of air and may represent either he matoma or abscess. IMPRESSION: 1. Patient is status post open reduction internal fixation of an intertrochanteric fracture proximal left femur 2. New soft tissue mass extending from the left iliac crest to the left gluteal muscle inferiorly con taining numerous pockets of air. This may represent hematoma or abscess. This was not present on [facility] r CT of 09/13/2024. Tissue density of the material is 5-10 Hounsfield units. 3. Proximal to the left femoral head is a linear collection of high density material measuring 7 cm i n width and 2 cm in thickness. Tissue density is 200 Hounsfield units. This is most likely fragment s of Calcifications. Active bleeding is unlikely since no IV contrast was given. 4. S- Shaped scoliosis of the thoracolumbar spine is noted convex on the right thoracic region on the left in the lumbar region. This is unchanged from 09/13/2024. 5. Multiple compressed lower thoracic and lumbar vertebra noted. These findings are not significantly from 09/13/2024. 6. Quinn catheter in the bladder. Radiation optimization: All CT scans at this facility use at least one of these dose optimization te chniques: automated exposure control mA and/or kV adjustment per patient size (includes targeted exa ms where dose is matched to clinical indication) or iterative reconstruction.
--- NOTE | 2024-09-16 16:26 | DVHPNRES ---
Progress Note Date Seen: Sep 16, 2024 Resident Creating Document: JERONIMO JORDAN RESIDENT Medical Necessity Reason Pt with a Central, PICC or Fol: No Subjective Review of Systems Is a 64-year-old man with past medical history of possible dementia, CHF and seizure brought to the hospital due to if lower limb pain since 1 day. Per patient's caregiver patient has slept on his urine 1 day back and subsequently got left-sided lower limb pain. The patient did not lose consciousness and did not have post fall nausea and vomiting. Patient has decreased cognition status (but has not been diagnosed with dementia) with occasional sundowning. He was admitted 1 month back at [facility], due to left homeless/radial fracture upon a ground level fall. He was assessed by Orthopedic, recommended outpatient follow up and stabilized with a cast, but per patient's caregiver the patient denied outpatient orthopedics follow up. He denies fever, chest pain, shortness of breath, nausea, vomiting, or any bowel or bladder habit changes. PMHx: possible dementia, CHF and seizure PSHx: Not significant Family history: Not contributory Social history: Patient was previously homeless, subsequently was living at SNF for few months, and since 4 months has been living at home with a caregiver. Previous to the fall patient was mobile and did not use walker or cane for mobility. Home medication: Levetiracetam Allergic history: No known allergies 09/14-Patient seen and examined at the bedside. He is alert and oriented name but otherwise not oriented to time or place. Patient was undergoing surgery. 09/16-patient seen and examined at the bedside. Does not know he underwent surgery. Dressing is dry clean intact. WBC 9.3. Hemoglobin dropped from 9-[address] abdomen ordered which showed soft tissue mass extending from the left iliac crest to the left gluteal muscle inferiorly containing numerous pockets of air. This may represent hematoma or abscess. This was not present on prior CT of 09/13/2024. Tissue density of the material is 5-10 Hounsfield units. Objective vital signs Vital Sign Date Time Temp Pulse Resp B/P (MAP) Pulse Ox O2 Delivery O2 Flow Rate FiO2 09/16/24 14:05 59 17 95/56 (69) 100 09/16/24 13:00 98.6 98.6 09/16/24 07:30 Room Air* 0 21 Total Intake and Output 09/15/24 09/15/24 09/16/24 15:00 23:00 07:00 Intake Total 1337.5 ml 1025 ml Output Total 750 ml 550 ml Balance 587.5 ml 475 ml medications Current Medications Medications Dose Ordered Sig/Cece Route Start Time Stop Time Status Last Admin Dose Admin Acetaminophen 650 mg Q6HP PRN PO 09/13/24 23:30 Acetaminophen/ Hydrocodone Bitart 1 tab Q4HP PRN PO 09/13/24 23:30 09/16/24 05:10 1 TAB Ondansetron HCl 4 mg Q4HP PRN IV 09/13/24 23:30 Morphine Sulfate 2 mg Q4HPRN PRN IV 09/13/24 23:30 09/15/24 08:27 2 MG Enoxaparin Sodium 40 mg DAILY SC 09/14/24 10:00 09/16/24 10:10 40 MG Levetiracetam 500 mg BID PO 09/14/24 10:00 09/16/24 10:09 500 MG Sodium Chloride 1,000 ml @ 75 mls/hr [id number] IV 09/13/24 23:30 09/15/24 15:30 75 MLS/HR Polyethylene Glycol 17 gm DAILY PO 09/15/24 10:00 Pantoprazole Sodium 40 mg DAILY IV 09/15/24 10:00 09/16/24 10:09 40 MG Docusate Sodium 100 mg BID PO 09/14/24 22:00 09/16/24 10:09 100 MG Trazodone HCl 50 mg HS PO 09/14/24 22:00 09/15/24 22:39 50 MG Quetiapine Fumarate 50 mg BID PO 09/15/24 10:00 09/16/24 10:09 50 MG Piperacillin Sod/ Tazobactam Sod 100 ml @ 25 mls/hr Q8HR IV 09/15/24 22:00 09/16/24 05:11 25 MLS/HR Enteral Nutritional Formula 240 ml TIDWM PO 09/16/24 12:00 09/16/24 14:47 240 ML Examination General Appearance: Alert, A&O x1, not oriented to time or place HEENT: Atraumatic, PERRLA, EOMI, Mucous membrane moist/pink Respiratory: Clear to auscultation, Normal air movement Cardiovascular: Regular rate, Normal S1, Normal S2, No murmurs, no chest wall tenderness Abdominal: Normal bowel sounds, Soft, No tenderness, No hepatospenomegaly, No masses Extremities: Left lower extremity is short and externally rotated, decreased range of motion due to pain, left upper limb is in cast due to previous fracture. Left lower extremity dressing dry clean intact. Skin: No rashes, No breakdown, No significant lesion Neuro: Normal gait, Normal speech, Strength at 5/5 X4 ext, Normal tone, Sensation intact, Cranial nerves 3-12 NL, Reflexes 2+ Psych/Mental Status: Mental status NL, Mood NL Examination: GENERAL:Normal, HEENT:Normal, NECK:Normal, CVS:Normal, ABDOMEN:Normal laboratory and microbiology Laboratory Tests 09/16/24 06:09 Test 09/16/24 06:09 Range/Units Serum Glucose 99 74-106 mg/dL Labs and/or images reviewed: Labs reviewed by me, Image(s) reviewed by me Problem List/Assessment/Plan Problem List/Assessment/Plan Acute Left comminuted displaced intertrochanteric hip fracture undergoing open reduction internal fixation 09/14 ? Left gluteal Hematoma Subacute comminuted left distal radius and ulnar bone fracture Subacute rib fractures Fifth metacarpal shaft fracture Possible osteoporosis Hypotension Possible rhabdomyolysis CT abdomen shows, acute comminuted, displaced intratrochanteric fracture of the left femur with associated soft tissue edema, and rib fracture Left Wrist x-ray showed Possible fracture of the 5th metacarpal shaft Consulted orthopedics -recommended open versus closed IM nail fixation of his left intertrochanteric hip fracture 09/14 Pain management IV fluid CPK downtrending Postoperative day 2: Hemoglobin dropped to 8, CT abdomen showed w soft tissue mass extending from the left iliac crest to the left gluteal muscle inferiorly containing numerous pockets of air. This may represent hematoma or abscess. This was not present on prior CT of 09/13/2024. Tissue density of the material is 5- 10 Hounsfield units. Active bleeding is unlikely since no IV contrast was given. Moderate hiatal hernia Constipation Pantoprazole 40 mg IV daily MiraLax 17 g p.o. daily and docusate 100 mg p.o. History of seizure Continue levetiracetam 500 mg p.o. b.i.d. Anemia, likely normocytic Monitor Likely dementia currently A&O x1 DIET: Regular diet DVT PROPHYLAXIS: Discontinued Lovenox given probability of hematoma GI PROPHYLAXIS:: Protonix CODE STATUS: Full code DISPOSITION: Med surge Patient's status and plan discussed with the patient and the patient's caregiver through the phone. Case discussed with Dr. Gupta Plan discussed with: Patient My Orders My Orders Orders - JERONIMO JORDAN Procedure Category Date Status Time Folate (Folic Acid) LAB 09/16/24 In Process 11: Vitamin B12 LAB 09/16/24 In Process 11: Vitamin D, 25-Hydroxy LAB 09/16/24 In Process 11: Nutritional PHA 09/16/24 In Process Supplements (Ensure 12:00 Ct Ab Pel Wo Con-No CT 09/16/24 Resulted Oral Or Iv 13:09 Dietary Evaluation Review Comments: 1) Initiate Ensure Enlive tid 2) Promote optimal PO intake 3) F/u with PT and orthopedic 4) Continue to monitor I&O, labs, and skin integrity Expected Outcomes/Goals: 1) appetite and labs to improve 2) f/u in 3-5 days Date of Service: Sep 16, 2024 Billing Provider: DARRYN GUPTA DO Common Visit Codes: [id number] INP/OBS CARE(HIGH) JERONIMO JORDAN RESIDENT Sep 16, 2024 16:26 DARRYN GUPTA DO Sep 17, 2024 07:14
[2024-09-16] MEDS: SODIUM CHLORIDE 0.9% 500 ML IV ONE (16:30)
[2024-09-16] MEDS ORDERED: VANCOMYCIN PER PHARMACY 0 MG IV SCH (16:30)
[2024-09-16 16:38] VITALS: BP 109/61; PULSE 90; RESP 17; TEMP 99.1; O2SAT 96
[2024-09-17 01:00] VITALS: BP 129/71; PULSE 108; RESP 17; TEMP 98; O2SAT 97
[2024-09-17 05:00] VITALS: BP 119/70; PULSE 99; RESP 17; TEMP 98.3; O2SAT 97
[2024-09-17 05:41] LABS: Basophils # (auto) 0 10 ^3/uL (0-0.2); Basophils % (auto) 0.2 % (0.0-2.0); Eosinophils # (auto) 0.1 10 ^3/uL (0-0.8); Eosinophils % (auto) 0.7 % (0.0-7.0); Hematocrit 27.3 % (41.0-53.0); Hemoglobin 9.4 g/dL (13.5-17.5); Lymphocytes # (auto) 1.4 10 ^3/uL (0.4-5.4); Lymphocytes % (auto) 14.4 % (10.0-50.0); Mean Corpuscular Hemoglobin 34.5 pg (28.0-32.0); Mean Corpuscular Hgb Conc. 34.6 g/dL (32.0-36.0); Mean Corpuscular Volume 99.8 fL (80.0-100.0); Monocytes % (auto) 10.2 % (0.0-12.0); Neutrophils # (auto) 7.2 10 ^3/uL (1.6-8.6); Neutrophils % (auto) 74.5 % (37.0-80.0); Platelet Count (auto) 172 10^3/uL (140-450); Red Blood Cells 2.74 10^6/uL (4.5-5.90); Red Cell Distribution Width 14.5 % (11.8-14.3); White Blood Cell 9.7 10^3/uL (4.4-10.8)
[2024-09-17 05:59] LABS: Alanine Aminotransferase 13 U/L (7-40); Albumin 3.7 g/dL (3.2-4.8); Alkaline Phosphatase 98 U/L (46-116); Anion Gap 10 (5-15); Aspartate Aminotransferase 18 U/L (13-40); BUN/Creatinine Ratio 15.3 (10.0-20.0); Blood Urea Nitrogen 11 mg/dL (9-23); Calcium 9.3 mg/dL (8.7-10.4); Carbon Dioxide 24 mmol/L (20-31); Chloride 104 mmol/L (98-107); Glucose 97 mg/dL (74-106); Magnesium 1.8 mg/dL (1.6-2.6); Potassium 3.7 mmol/L (3.5-5.1); Sodium 138 mmol/L (136-145); Total Protein 5.9 g/dL (5.7-8.2)
[2024-09-17 08:20] VITALS: BP 111/62; PULSE 87; RESP 19; TEMP 98; O2SAT 97
[2024-09-17] MEDS ORDERED: MAGNESIUM SULFATE 1GM/100ML 100 ML IV ONE (09:00)
[2024-09-17] MEDS: PANTOPRAZOLE 40 MG TAB PO SCH (09:53)
[2024-09-17] MEDS: MAGNESIUM OXIDE 400 MG TAB PO ONE (09:54)
[2024-09-17] MEDS: POTASSIUM EFFERVESENT TAB 25 MEQ PO ONE (09:55)
[2024-09-17 10:48] LABS: Folate (Folic Acid) 5.36 ng/mL (>5.38)
--- NOTE | 2024-09-17 10:58 | DVH ---
Exam: XY KUB ABDOMEN SINGLE VIEW Indication: r/o obstruction Comparison: None Technique: 1 radiographic views of the abdomen. Findings: Moderate volume colonic stool. Nonobstructive bowel gas pattern noted. There is no definite evidence for pneumoperitoneum. No abnormal calcifications noted. Impression: Nonobstructive bowel gas pattern noted. Moderate volume colonic stool.
--- NOTE | 2024-09-17 12:13 | DVHDSRES ---
Discharge Summary Date of Admission Resident Creating Document: JERONIMO JORDAN RESIDENT Sep 13, 2024 at 23:17 Date of Discharge: Sep 17, 2024 Labs/Diagnostic Data: Laboratory Results Test 09/17/24 04:59 09/16/24 06:09 09/14/24 06:56 09/13/24 15:52 White Blood Count 9.7 10^3/uL (4.4-10.8) Red Blood Count 2.74 10^6/uL (4.5-5.90) Hemoglobin 9.4 g/dL (13.5-17.5) Hematocrit 27.3 % (41.0-53.0) Mean Corpuscular Volume 99.8 fL (80.0-100.0) Mean Corpuscular Hemoglobin 34.5 pg (28.0-32.0) Mean Corpuscular Hemoglobin Concent 34.6 g/dL (32.0-36.0) Red Cell Distribution Width 14.5 % (11.8-14.3) Platelet Count 172 10^3/uL (140-450) Mean Platelet Volume 9.3 fL (6.9-10.8) Neutrophils (%) (Auto) 74.5 % (37.0-80.0) Lymphocytes (%) (Auto) 14.4 % (10.0-50.0) Monocytes (%) (Auto) 10.2 % (0.0-12.0) Eosinophils (%) (Auto) 0.7 % (0.0-7.0) Basophils (%) (Auto) 0.2 % (0.0-2.0) Neutrophils # (Auto) 7.2 10 ^3/uL (1.6-8.6) Lymphocytes # (Auto) 1.4 10 ^3/uL (0.4-5.4) Monocytes # (Auto) 1.0 10 ^3/uL (0-1.3) Eosinophils # (Auto) 0.1 10 ^3/uL (0-0.8) Basophils # (Auto) 0 10 ^3/uL (0-0.2) Nucleated Red Blood Cells 0.0 % Sodium Level 138 mmol/L (136-145) Potassium Level 3.7 mmol/L (3.5-5.1) Chloride Level 104 mmol/L (98-107) Carbon Dioxide Level 24 mmol/L (20-31) Anion Gap 10 (5-15) Blood Urea Nitrogen 11 mg/dL (9-23) Creatinine 0.72 mg/dL (0.700-1.30) Glomerular Filtration Rate Calc 101 mL/min (>90) BUN/Creatinine Ratio 15.3 (10.0-20.0) Serum Glucose 97 mg/dL (74-106) Calcium Level 9.3 mg/dL (8.7-10.4) Magnesium Level 1.8 mg/dL (1.6-2.6) Total Bilirubin 1.0 mg/dL (0.2-1.0) Aspartate Amino Transferase (AST) 18 U/L (13-40) Alanine Aminotransferase (ALT) 13 U/L (7-40) Alkaline Phosphatase 98 U/L (46-116) Total Protein 5.9 g/dL (5.7-8.2) Albumin 3.7 g/dL (3.2-4.8) Vitamin B12 Level 193 pg/mL (211-911) Vitamin D 25-Hydroxy 18.1 ng/mL (30.0-100) Folic Acid 5.36 ng/mL (>5.38) Prothrombin Time 10.6 sec (9.3-11.8) Prothrombin Time INR 1.00 (0.9-1.15) Activated Partial Thromboplast Time 25.2 SEC (24.5-34.5) Creatine Kinase 373 U/L (46-171) Hemoglobin A1c 4.7 % A1C (<5.7) Lactic Acid Level 1.1 mmol/L (0.4-2.0) Troponin I High Sensitivity 6 ng/L (</=54) B-Type Natriuretic Peptide 19.50 pg/mL (0-100) Test 09/13/24 14:52 Urine Color Yellow (Yellow) Urine Clarity Clear (Clear) Urine pH 5.5 (5.0-9.0) Urine Specific [place] 1.029 (1.001-1.035) Urine Protein Trace (Negative) Urine Ketones 2+ (Negative) Urine Blood Negative /uL (Negative) Urine Nitrite Negative (Negative) Urine Bilirubin Negative (Negative) Urine Urobilinogen Normal mg/dL (Negative) Urine Leukocyte Esterase Negative /uL (Negative) Urine RBC 1 /hpf (0 - 3) Urine Microscopic WBC 1 /HPF (0-3) Urine Squamous Epithelial Cells Few /hpf (<5) Urine Bacteria None seen /hpf (None Seen) Urine Mucus Few (None Seen) Urine Glucose Normal mg/dL (Normal) Urine Opiates Screen Pos (NEGATIVE) Urine Fentanyl Screen Neg (NEGATIVE) Urine Barbiturates Screen Neg (NEGATIVE) Urine Phencyclidine Screen Neg (NEGATIVE) Urine Amphetamines Screen Neg (NEGATIVE) Urine Benzodiazepines Screen Pos (NEGATIVE) Urine Cocaine Screen Neg (NEGATIVE) Urine Cannabinoids Screen Neg (NEGATIVE) Other Laboratory Tests 09/17/24 04:59 Brief Hx & Hospital Course: A 64-year-old man with past medical history of possible dementia, CHF and seizure brought to the hospital due to lower limb pain since 1 day. Per patient's caregiver patient has slept on his urine 1 day back and subsequently got left-sided lower limb pain. The patient did not lose consciousness and did not have post fall nausea and vomiting. Patient has decreased cognition status (but has not been diagnosed with dementia) with occasional sundowning. He was admitted 1 month back at [facility], due to left homeless/radial fracture upon a ground level fall. He was assessed by Orthopedic, recommended outpatient follow up and stabilized with a cast, but per patient's caregiver the patient denied outpatient orthopedics follow up. He denies fever, chest pain, shortness of breath, nausea, vomiting, or any bowel or bladder habit changes. PMHx: possible dementia, CHF and seizure PSHx: Not significant Family history: Not contributory Social history: Patient was previously homeless, subsequently was living at SNF for few months, and since 4 months has been living at home with a caregiver. Previous to the fall patient was mobile and did not use walker or cane for mobility. Home medication: Levetiracetam Allergic history: No known allergies During the hospitalization,CT abdomen shows, acute comminuted, displaced intratrochanteric fracture of the left femur with associated soft tissue edema, and rib fracture. Consulted orthopedics -recommended open versus closed IM nail fixation of his left intertrochanteric hip. Patient underwent open reduction and internal fixation 09/14 was started on IV fluids and pain management. CPK was trending down. Postoperative day 2: Hemoglobin dropped to 8, CT abdomen showed w soft tissue mass extending from the left iliac crest to the left gluteal muscle inferiorly containing numerous pockets of air. This may represent hematoma or abscess. This was not present on prior CT of 09/13/2024. Tissue density of the material is 5-10 Hounsfield units. Active bleeding is unlikely since no IV contrast was given. WBC was stable. Orthopedics was notified, recommended monitoring H&H, given the normal findings. Patient had moderate stool burden KUB, MiraLax 70 mg p.o. daily and doxepin 100 mg p.o. b.i.d. was started. We continued patient's home medication levetiracetam 500 mg p.o. b.i.d.. 09/17 his hemoglobin increased to 9.4. Patient is hemodynamically and clinically stable, therefore is being discharged with with his previous living arrangement which was home hospice. Physical examination on the day of discharge: General Appearance: Alert, A&O x1, not oriented to time or place HEENT: Atraumatic, PERRLA, EOMI, Mucous membrane moist/pink Respiratory: Clear to auscultation, Normal air movement Cardiovascular: Regular rate, Normal S1, Normal S2, No murmurs, no chest wall tenderness Abdominal: Normal bowel sounds, Soft, No tenderness, No hepatosplenomegaly, No masses Extremities: Left lower extremity is short and externally rotated, decreased range of motion due to pain, left upper limb is in cast due to previous fracture. Left lower extremity dressing dry clean intact. Skin: No rashes, No breakdown, No significant lesion Neuro: Normal gait, Normal speech, Strength at 5/5 X4 ext, Normal tone, Sensation intact, Cranial nerves 3-12 NL, Reflexes 2+ Psych/Mental Status: Mental status NL, Mood NL Case discussed with Dr. Lim Operations or Procedures Operative Report - 2 Report Details Date: 09/14/24 Preop Diagnosis: Left hip intertrochanteric fracture Postop Diagnosis: as above Surgeon: Beto Muniz MD Ambulance Assistant: Quang ROOT Anesthesiologist: Andrea HATCH Anesthesia: General Implant: ITS short troch nail Consent: The patient was informed of the risks and benefits of the procedure. These include but are not limited to complications of anesthesia, postoperative infection, incomplete relief of symptoms, recurrence of symptoms, damage to blood vessels, nerves and tendons, deep venous thrombosis, pulmonary embolism and possible need for repeat surgery in the future. Estimated Blood Loss: 100 cc Name of Procedure Performed Open reduction internal fixation of left hip fracture; intraop fluoro Procedure Details Procedure Details: FINDINGS: IT fracture, reduced on the fracture table. DESCRIPTION OF PROCEDURE: In the preoperative holding area, the consent was reviewed and the appropriate extremity was verified by the patient and marked with my initials. The patient was then transferred to the operating theatre. Patient was placed on a fracture table. Appropriate anesthetia was induced. All bony prominences were well padded. A time out was performed verifying the side and site of surgery according to standard protocol. Preoperative antibiotics were given. The extremity was then prepped and draped in the usual sterile fashion. Using c-arm, the fracture was reduced using the fracture table and a combination of maneuvers including traction, internal rotation, and flexion. An incision was made over the greater trochanter confirming correct position with c-arm. A guide wire was drilled into the tip of the greater trochanter, centered A to P. We used the starting reamer to gain entry to the femoral canal. A short nail was then placed. A guide pin was then drilled in the center of the femoral head confirmed using fluoroscopy. We measured the screw lengths. Using a cannulated drill, we drilled the lateral cortex. The screws were then introduced. Once positioned, we once again confirmed that the screws were with the femoral head. Attention was turned distally. We used the targeting device to drill through the nail and the femur. This was measured using the device, and the screw was placed with good purchase. Final xrays were taken showing the hardware in perfect position. The wound was copiously irrigated. No fractures were seen on the rest of the femur. The fascia was closed with #1 Vicryl, the skin closed #2-0 Vicryl, and florin. A dry sterile dressing was placed on the patient. The patient was transferred to the recovery room in stable condition. Condition Good Disposition 2 Still a Patient BETO MUNIZ MD Sep 14, 2024 17:52 DICTATED BY:BETO MUNIZ MD DICTATED DATE/TIME:09/14/241751 ELECTRONICALLY SIGNED BY:BETO MUNIZ MD 09/14/241751 ELECTRONICALLY CO-SIGNED BY: Condition at Discharge: Stable Final Diagnosis/Problems List Acute Left comminuted displaced intertrochanteric hip fracture undergoing open reduction internal fixation 09/14 ? Left gluteal Hematoma Subacute comminuted left distal radius and ulnar bone fracture Subacute rib fractures Fifth metacarpal shaft fracture Possible osteoporosis Hypotension Possible rhabdomyolysis Moderate hiatal hernia Constipation History of seizure Anemia, likely normocytic Likely dementia Discharge Disposition: Hospice - Home (With home PT) Discharge Instruct/Medications Diet: Cardiac 2g Na,low cholest Activity: Light activity Follow Up/Referral: PER HOSPICE Medications: PER HOSPICE Discharge Statement: "Patient was advised to return to the ER or call 911 if any headaches, dizziness, shortness of breath, chest pain, abdominal pain, bleeding, fevers, or worsening of medical condition. Patient was counseled about treatment plan, medications, possible side effects, patientverbalized understanding. All questions were answered to the best of my ability. This discharge took greater then 30 minutes in planning, reviewing documentation, counseling the patient, and discussing with other team members." ASSESSMENT ASSESSMENT Assessment Acute Left comminuted displaced intertrochanteric hip fracture undergoing open reduction internal fixation 09/14 Left gluteal Hematoma Subacute comminuted left distal radius and ulnar bone fracture Subacute rib fractures Fifth metacarpal shaft fracture Possible osteoporosis Hypotension Possible rhabdomyolysis Addendum Addendum Addendum I was physically present for the romero portions of the service provided to patient by THE RESIDENT. I have reviewed the documentation, discussed the case with resident and agree with the resident's documentation except as noted. Also the patient's clinical case was discussed with the patient's nurse. This medical document was created using an electronic medical record system with computerized dictation system. Although this document has been carefully reviewed, there might still be some phonetic and typographical errors. These areas are purely typographical due to imperfections of the software programs, and do not reflect any compromise in the patient's medical care. Late signature. Date of Service: Sep 17, 2024 Billing Provider: ES LIM MD Common Visit Codes: 17415-ZUY/OBS DISCH DAY >30min JERONIMO JORDAN RESIDENT Sep 17, 2024 12:12 ES LIM MD Sep 17, 2024 23:09
[2024-09-17 13:30] VITALS: BP 116/69; PULSE 88; RESP 19; TEMP 98.2; O2SAT 96
[2024-09-17] MEDS: CYANOCOBALAMIN (B-12) 1000 MCG/1 ML VIAL IM ONE (14:02)
[2024-09-17] MEDS: ERGOCALCIFEROL 50,000 UNIT(1.25MG) CAP PO SCH (14:05)
== END 2024-09-17 21:22 | disposition hospice, home (50) | DRG 481 ==
LOC: EDBD 14:09 → ER 14:09 → OVERFLOW 23:17 → WEST WING 09-14 02:10
PROVIDERS: ADMIT Internal Medicine; ATTEND Internal Medicine
PROC: 05H933Z Insertion of Infusion Device into Right Brachial Vein, Percutaneous Approach (ICD-10-PCS; 2024-09-13)
PROC: B54MZZA Ultrasonography of Right Upper Extremity Veins, Guidance (ICD-10-PCS; 2024-09-13)
PROC: 0QS704Z Reposition Left Upper Femur with Internal Fixation Device, Open Approach (ICD-10-PCS; principal; 2024-09-14 12:32)
DX: S72.142A Displaced intertrochanteric fracture of left femur, initial encounter for closed fracture (principal); M62.82 Rhabdomyolysis; S22.42XA Multiple fractures of ribs, left side, initial encounter for closed fracture; S52.602A Unspecified fracture of lower end of left ulna, initial encounter for closed fracture; S52.502A Unspecified fracture of the lower end of left radius, initial encounter for closed fracture; Z51.5 Encounter for palliative care; I50.9 Heart failure, unspecified; F03.90 Unspecified dementia, unspecified severity, without behavioral disturbance, psychotic disturbance, mood disturbance, and anxiety; I95.9 Hypotension, unspecified; K44.9 Diaphragmatic hernia without obstruction or gangrene; Z79.899 Other long term (current) drug therapy; K59.00 Constipation, unspecified; W18.39XA Other fall on same level, initial encounter; Y93.89 Activity, other specified; Y92.89 Other specified places as the place of occurrence of the external cause; Y99.8 Other external cause status
CPT/HCPCS: 36415; 71045; 72170; 73100; 73502; 74018; 74176; 76000; 80053; 80307; 81001; 82306; 82550; 82607; 82746; 83036; 83605; 83735; 83880; 84484; 85025; 85610; 85730; 86850; 86900; 86901; 87040; 96374; 97110; 97116; 97163; 97530; G0378; J1885; J2470; J2543; J3490